=== PATIENT | male | born 1950 | race Caucasian/White ===

== ENCOUNTER 2017-11-16 04:16 | Emergency (ER) | payer OTHER ==
[~2017-11-16] VITALS: Ht 175.3 cm; Wt 65.0 kg
[2017-11-16 04:18] VITALS: BP 159/76; PULSE 97; RESP 26; TEMP 98.1; O2SAT 96
[2017-11-16] MEDS ORDERED: ALBUAER3 INH (04:23)
[2017-11-16] MEDS ORDERED: SYMB160A INH (04:23)
--- NOTE | 2017-11-16 04:53 | PD ---
HPI Chief Complaint: Respiratory Symptoms Time Seen by Provider: 04:19 Travel History International Travel<30 days: No Contact w/Intl Traveler<30days: No Traveled to known affect area: No History of Present Illness HPI Patient is a 67-year-old homeless male who has a history of COPD he apparently called the paramedics because he was getting shortness of breath which was worsening he ran out of his medication that he usually is to treat his COPD. In route he received to [employer] and Solu-Medrol IV he arrives appearing very unkempt close and smells unwashed he is pleasant awake alert and cooperative his lungs on initial of his eval have diffuse wheeze in all baugh expiratory PFSH Past Medical History Asthma: Yes Tetanus Vaccination: Unknown Influenza Vaccination: No Past Surgical History Other Surgery: Yes (hernia surgery 3 hrs) Social History Alcohol Use: Yes Tobacco Use: Yes Substance Use: No Allergies-Medications (Allergen,Severity, Reaction): Coded Allergies: No Known Allergies (Verified Allergy, Unknown, 11/16/17) Reported Meds & Prescriptions Reported Meds & Active Scripts Active Prednisone 50 Mg Tab 50 Mg PO DAILY Cipro (Ciprofloxacin HCl) 500 Mg Tab 500 Mg PO BID Atrovent HFA 12.9 GM Inh (Ipratropium [place]) 17 Mcg/Actuation Aer 2 Puff INH Q6HR PRN Reported Proair Hfa 8.5 GM Inh (Albuterol Sulfate) 90 Mcg/Act Aer 2 Puff INH Q4-6H PRN 108 mcg/actuation Symbicort Inh (Budesonide/Formoterol Fumarate) 160-4.5 Mcg/Act Aero 1 Puff INH Q12HR Review of Systems Except as stated in HPI: all other systems reviewed are Neg Respiratory: Positive: Cough, Shortness of Breath, Wheezing Physical Exam Narrative GENERAL: Patient is cooperative awake alert unkempt clothes are dirty and his body smell SKIN: Warm and dry. HEAD: Atraumatic. Normocephalic. EYES: Pupils equal and round. No scleral icterus. No injection or drainage. ENT: No nasal bleeding or discharge. Mucous membranes pink and moist. NECK: Trachea midline. No JVD. CARDIOVASCULAR: Regular rate and rhythm. RESPIRATORY: No accessory muscle use. Diffuse wheeze in all baugh upper and lower expiratory no obvious respiratory distress respiratory rate is not increased. GASTROINTESTINAL: Abdomen soft, non-tender, nondistended. Hepatic and splenic margins not palpable. MUSCULOSKELETAL: Extremities without clubbing, cyanosis, or edema. No obvious deformities. NEUROLOGICAL: Awake and alert. No obvious cranial nerve deficits. Motor grossly within normal limits. Five out of 5 muscle strength in the arms and legs. Normal speech. PSYCHIATRIC: Appropriate mood and affect; insight and judgment normal. Data Data Last Documented VS Vital Signs Date Time Temp Pulse Resp B/P (MAP) Pulse Ox O2 Delivery O2 Flow Rate FiO2 11/16/17 06:49 11/16/17 06:11 95 16 98 Room Air 11/16/17 04:18 98.1 Orders Orders Levofloxacin (Levaquin) (11/16/17 05:30) Albuterol-Ipratropium Neb (Duoneb Neb) (11/16/17 05:30) Chest, Pa & Lat (11/16/17 ) Complete Blood Count With Diff (11/16/17 05:22) Comprehensive Metabolic Panel (11/16/17 05:22) Troponin I (11/16/17 05:22) Lipase (11/16/17 05:22) Ed Discharge Order (11/16/17 06:37) Labs Laboratory Tests Test 11/16/17 05:15 White Blood Count 6.7 TH/MM3 Red Blood Count 4.47 MIL/MM3 Hemoglobin 14.0 GM/DL Hematocrit 41.5 % Mean Corpuscular Volume 92.8 FL Mean Corpuscular Hemoglobin 31.4 PG Mean Corpuscular Hemoglobin Concent 33.8 % Red Cell Distribution Width 13.8 % Platelet Count 292 TH/MM3 Mean Platelet Volume 8.1 FL Neutrophils (%) (Auto) 53.2 % Lymphocytes (%) (Auto) 34.1 % Monocytes (%) (Auto) 6.4 % Eosinophils (%) (Auto) 5.1 % Basophils (%) (Auto) 1.2 % Neutrophils # (Auto) 3.6 TH/MM3 Lymphocytes # (Auto) 2.3 TH/MM3 Monocytes # (Auto) 0.4 TH/MM3 Eosinophils # (Auto) 0.3 TH/MM3 Basophils # (Auto) 0.1 TH/MM3 Blood Urea Nitrogen 15 MG/DL Creatinine 0.54 MG/DL Random Glucose 89 MG/DL Total Protein 6.6 GM/DL Albumin 3.2 GM/DL Calcium Level 7.7 MG/DL Alkaline Phosphatase 73 U/L Aspartate Amino Transf (AST/SGOT) 31 U/L Alanine Aminotransferase (ALT/SGPT) 21 U/L Total Bilirubin 0.4 MG/DL Sodium Level 139 MEQ/L Potassium Level 4.0 MEQ/L Chloride Level 109 MEQ/L Carbon Dioxide Level 23.0 MEQ/L Anion Gap 7 MEQ/L Estimat Glomerular Filtration Rate 153 ML/MIN Troponin I LESS THAN 0.02 NG/ML Lipase 277 U/L MDM Medical Decision Making Medical Screen Exam Complete: Yes Emergency Medical Condition: Yes Differential Diagnosis copd exacerbation vs bronchitis , vs PNA vs URI other Narrative Course Chest x-ray is within normal limits he is given duo nebs Solu-Medrol was given en route given by mouth Levaquin his room sat on room air is 98% I will discharge him on Cipro Atrovent and prednisone follow-up as an outpatient discharged home Diagnosis Primary Impression: COPD exacerbation Patient Instructions: COPD (Chronic Obstructive Pulmonary Disease) (ED), General Instructions Scripts Prednisone (Prednisone) 50 Mg Tab 50 MG PO DAILY, #6 TAB 0 Refills Prov: Ad Lyn MD 11/16/17 Ciprofloxacin (Cipro) 500 Mg Tab 500 MG PO BID for Infection, #20 TAB 0 Refills Prov: Ad Lyn MD 11/16/17 Ipratropium HFA 12.9 GM Inh (Atrovent HFA 12.9 GM Inh) 17 Mcg/Actuation Aer 2 PUFF INH Q6HR Y for SHORTNESS OF BREATH, #1 INHALER 0 Refills Prov: Ad Lyn MD 11/16/17 Disposition: 01 DISCHARGE HOME Condition: Good Ad Lyn MD Nov 16, 2017 04:53
[2017-11-16] MEDS ORDERED: LEVOFLOXACIN 750 MG TAB PO ONE (05:30)
[2017-11-16] MEDS ORDERED: RESP: ALBUTEROL 2.5 MG/IPRATROPIUM 0.5 MG NEB (SCH) NEB ONE (05:30)
[2017-11-16 05:42] LABS: AUTOMATED NEUTROPHIL # 3.6 TH/MM3 (1.8-7.7); BASOPHIL # 0.1 TH/MM3 (0-0.2); BASOPHIL % 1.2 % (0.0-2.0); EOSINOPHIL # 0.3 TH/MM3 (0-0.4); EOSINOPHIL % 5.1 % (0.0-4.0); HEMATOCRIT 41.5 % (39.0-51.0); LYMPH % 34.1 % (9.0-44.0); LYMPHOCYTE # 2.3 TH/MM3 (1.0-4.8); MEAN CELL VOLUME 92.8 FL (80.0-100.0); MEAN CORPUSCULAR HEMOGLOBIN 31.4 PG (27.0-34.0); MEAN CORPUSCULAR HGB CONC 33.8 % (32.0-36.0); MEAN PLATELET VOLUME 8.1 FL (7.0-11.0); MONO % 6.4 % (0.0-8.0); MONOCYTE # 0.4 TH/MM3 (0-0.9); NEUT % 53.2 % (16.0-70.0); PLATELET COUNT 292 TH/MM3 (150-450); RED BLOOD COUNT 4.47 MIL/MM3 (4.50-5.90); RED CELL DISTRIBUTION WIDTH 13.8 % (11.6-17.2); WHITE BLOOD COUNT 6.7 TH/MM3 (4.0-11.0)
[2017-11-16 06:06] LABS: ALKALINE PHOSPHATASE 73 U/L (45-117); TOTAL BILIRUBIN ADULT 0.4 MG/DL (0.2-1.0); TOTAL PROTEIN 6.6 GM/DL (6.4-8.2); TROPONIN I LESS THAN 0.02 NG/ML (0.02-0.05)
[2017-11-16 06:08] LABS: ALBUMIN 3.2 GM/DL (3.4-5.0); ALT (GPT) 21 U/L (12-78); AST (GOT) 31 U/L (15-37); BLOOD UREA NITROGEN 15 MG/DL (7-18); CALCIUM 7.7 MG/DL (8.5-10.1); CHLORIDE 109 MEQ/L (98-107); CREATININE 0.54 MG/DL (0.60-1.30); GLOMERULAR FILTRATION RATE 153 ML/MIN (>89); GLUCOSE,RANDOM 89 MG/DL (74-106); SODIUM (NA) 139 MEQ/L (136-145)
[2017-11-16 06:11] VITALS: BP 144/74; PULSE 95; RESP 16; O2SAT 98
[2017-11-16] MEDS ORDERED: PRED50 PO (06:36)
[2017-11-16] MEDS ORDERED: CIPR-9 PO (06:36)
[2017-11-16] MEDS ORDERED: IPRA17I INH (06:36)
--- NOTE | 2017-11-16 06:36 | RADRPT ---
EXAM DATE/TIME: 11/16/2017 06:20 [facility] COMPARISON: No previous studies available for comparison. INDICATIONS : Cough. MEDICAL HISTORY : None. SURGICAL HISTORY : None. ENCOUNTER: Initial ACUITY: 1 day PAIN SCORE: 0/10 LOCATION: Bilateral chest FINDINGS: Frontal and lateral views of the chest demonstrate a normal-sized cardiac silhouette. Lungs are mildl y hyperinflated with interstitial prominence bilaterally. No pleural effusion, airspace consolidation , or pneumothorax is identified. The bones and soft tissues demonstrate no acute finding. There are d egenerative changes of the thoracic spine. CONCLUSION: No acute cardiopulmonary abnormality is identified. There are background lung changes suggesting obst ructive airways disease/emphysema. Panda Figueroa MD on November 16, 2017 at 6:32 Board Certified Radiologist. This report was verified electronically.
== END 2017-11-16 07:51 | disposition home or self-care (01) ==
LOC: NEPE 04:16
DX: J44.1 Chronic obstructive pulmonary disease with (acute) exacerbation (principal); Z72.0 Tobacco use
CPT/HCPCS: 71046; 80053; 83690; 84484; 85025; 94664; 99284

== ENCOUNTER 2017-12-01 10:14 | Emergency (ER) | payer OTHER ==
[~2017-12-01] VITALS: Ht 162.6 cm; Wt 68.2 kg
[~2017-12-01 10:14] MED LIST: ALBUAER3 INH; CIPR-9 PO; IPRA17I INH; PRED50 PO; SYMB160A INH
[2017-12-01 10:29] VITALS: BP 128/78; PULSE 71; RESP 16; O2SAT 97
[2017-12-01 10:31] VITALS: BP 128/78; PULSE 71; RESP 16; TEMP 97.5; O2SAT 97
[2017-12-01] MEDS ORDERED: methylPREDNISolone SOD SUCC 125 MG/2 ML VIAL IV PUSH ONE (11:15)
--- NOTE | 2017-12-01 11:19 | PD ---
HPI Chief Complaint: Respiratory Symptoms Time Seen by Provider: 11:02 Travel History International Travel<30 days: No Contact w/Intl Traveler<30days: No Traveled to known affect area: No History of Present Illness HPI 67 year old male presents to the emergency department for evaluation of shortness of breath. Patient was here on 11/16/17 for COPD exacerbation. He states he needs his Symbicort refilled and has been out for several months. Patient states that after being seen on November 16, he did feel better for approximately a week. However, today, he left his house without his albuterol inhaler and became worse. Patient is a current tobacco smoker, smokes 7-8 cigarettes daily. Patient denies any fevers or chills. No chest pain. No abdominal pain. No nausea, vomiting, diarrhea. Patient with history of eczema , but no other chronic medical problems. Patient states he is feeling better after receiving albuterol nebulizer via EMS. Patient has no pain. Albuterol alleviates symptoms. Exacerbating factor is not having inhaler. Moderate severity. PFSH Past Medical History Asthma: Yes Respiratory: Yes (COPD) Past Surgical History Other Surgery: Yes (hernia surgery 3 hrs) Social History Alcohol Use: Yes Tobacco Use: Yes Substance Use: No Allergies-Medications (Allergen,Severity, Reaction): Coded Allergies: No Known Allergies (Verified Allergy, Unknown, 11/16/17) Reported Meds & Prescriptions Reported Meds & Active Scripts Active Prednisone 50 Mg Tab 50 Mg PO DAILY Cipro (Ciprofloxacin HCl) 500 Mg Tab 500 Mg PO BID Atrovent HFA 12.9 GM Inh (Ipratropium [place]) 17 Mcg/Actuation Aer 2 Puff INH Q6HR PRN Reported Proair Hfa 8.5 GM Inh (Albuterol Sulfate) 90 Mcg/Act Aer 2 Puff INH Q4-6H PRN 108 mcg/actuation Symbicort Inh (Budesonide/Formoterol Fumarate) 160-4.5 Mcg/Act Aero 1 Puff INH Q12HR Review of Systems Except as stated in HPI: all other systems reviewed are Neg Physical Exam Narrative GENERAL: Unkempt male patient, afebrile. SKIN: Focused skin assessment warm/dry. HEAD: Normocephalic. Atraumatic. ENT: Mucosa pink and moist. No erythema or exudates. No uvular edema. No uvular , palatal, or tonsillar deviation. Airway patent. Nasal turbinates appear normal without nasal blood, purulent drainage or septal hematoma. Bilateral tympanic membranes are clear without erythema or perforation. EYES: No scleral icterus. No injection or drainage. NECK: Supple, trachea midline. No JVD or lymphadenopathy. CARDIOVASCULAR: Regular rate and rhythm without murmurs, gallops, or rubs. Bilateral radial and pedal pulses are 2+. RESPIRATORY: Breath sounds equal bilaterally. No accessory muscle use. Lungs sounds with expiratory wheezes noted throughout. GASTROINTESTINAL: Abdomen soft, non-tender, nondistended. MUSCULOSKELETAL: No cyanosis, or edema. BACK: Nontender without obvious deformity. No CVA tenderness. Data Data Last Documented VS Vital Signs Date Time Temp Pulse Resp B/P (MAP) Pulse Ox O2 Delivery O2 Flow Rate FiO2 12/01/17 10:31 16 97 Room Air 12/01/17 10:31 97.5 71 128/78 (95) Orders Orders Chest, Pa & Lat (12/01/17 ) Influenzae A/B Antigen (12/01/17 10:44) Iv Access Insert/Monitor (12/01/17 11:14) Methylprednisolone So Succ Inj (Solumedr (12/01/17 11:15) Albuterol-Ipratropium Neb (Duoneb Neb) (12/01/17 11:15) MDM Medical Decision Making Medical Screen Exam Complete: Yes Emergency Medical Condition: Yes Medical Record Reviewed: Yes Interpretation(s) chest x-ray - CONCLUSION: No acute cardiopulmonary disease. Differential Diagnosis COPD exacerbation versus pneumonia versus URI Narrative Course 67-year-old male presents to the emergency department for evaluation of shortness of breath, COPD exacerbation. Vital signs are stable patient appears on exam. IV access established. Patient is given DuoNeb 3, Solu-Medrol 125 mg IV. Chest x-ray and influenza swab are ordered and pending. Chest x-ray shows no acute cardiopulmonary disease. Influenza is negative. Upon reexamination, patient states he feels much better and is no longer short of breath. Mild expiratory wheezes are noted. Patient becomes agitated very easily and screams that he does not have a couple coffee. He states he feels okay to go home. Patient is requesting a prescription for Symbicort. He'll be given this as well as a short-term prescription for prednisone. The patient was discharged in stable condition with instructions, including return instructions and follow up instructions. Diagnosis Primary Impression: COPD exacerbation Referrals: [facility] Primary Care Physician Patient Instructions: COPD (Chronic Obstructive Pulmonary Disease) (ED), General Instructions Additional Instructions: Use Symbicort as directed. You requested this refill. Take prednisone taper as directed until gone. Use your albuterol inhaler as needed for shortness of breath/wheezing. Stop smoking. Follow-up with your primary care physician. Return to the emergency department for any acute worsening of symptoms. Med/Other Pt SpecificInfo: Prescription(s) given Scripts Prednisone (Prednisone) 10 Mg Tab 10 MG PO DIRECTED for 10 Days, TAB 0 Refills Take 50 mg (5 tabs) daily for 2 days Take 40 mg (4 tabs) daily for 2 days Take 30 mg (3 tabs) daily for 2 days Take 20 mg (2 tabs) daily for 2 days Take 10 mg (1 tab) daily for 2 days, then stop Prov: Yu España 12/01/17 Budesonide-Formoterol Inh (Symbicort Inh) 160-4.5 Mcg/Act Aero 1 PUFF INH Q12HR, #1 INHALER 0 Refills Prov: Yu España 12/01/17 Disposition: 01 DISCHARGE HOME Condition: Stable Yu España Dec 01, 2017 11:19
[2017-12-01] MEDS: RESP: ALBUTEROL 2.5 MG/IPRATROPIUM 0.5 MG NEB (SCH) INH (11:43)
--- NOTE | 2017-12-01 11:49 | RADRPT ---
EXAM DATE/TIME: 12/01/2017 11:23 [facility] COMPARISON: CHEST PA & LAT, November 16, 2017, 6:20. INDICATIONS : Short of breath. MEDICAL HISTORY : Chronic obstructive pulmonary disease. Emphysema. hx given by pt SURGICAL HISTORY : None. ENCOUNTER: Initial ACUITY: 1 day PAIN SCORE: 0/10 LOCATION: Bilateral chest FINDINGS: PA and lateral views of the chest demonstrate the lungs to be symmetrically hyperaerated without evid ence of mass, infiltrate or effusion. The cardiomediastinal contours are unremarkable. Osseous stru ctures are intact. CONCLUSION: No acute cardiopulmonary disease. Pawan Kebede MD on December 01, 2017 at 11:47 Board Certified Radiologist. This report was verified electronically.
[2017-12-01] MEDS ORDERED: PRED10 PO (12:08)
[2017-12-01] MEDS ORDERED: SYMB160A INH (12:08)
== END 2017-12-01 12:22 | disposition home or self-care (01) ==
LOC: NEPC 10:14
DX: J44.1 Chronic obstructive pulmonary disease with (acute) exacerbation (principal); J45.909 Unspecified asthma, uncomplicated; F17.210 Nicotine dependence, cigarettes, uncomplicated; Z79.899 Other long term (current) drug therapy
CPT/HCPCS: 71046; 87804; 94664; 96374; 99284; J2930

== ENCOUNTER 2017-12-17 23:35 | Emergency (ER) | payer OTHER ==
[~2017-12-17] VITALS: Ht 175.3 cm; Wt 64.0 kg
[~2017-12-17 23:35] MED LIST changes: +PRED10 PO
[2017-12-17 23:57] VITALS: BP 138/69; PULSE 90; RESP 16; TEMP 98.4; O2SAT 97
--- NOTE | 2017-12-18 01:59 | PD ---
HPI Chief Complaint: Injury Time Seen by Provider: 01:53 Travel History International Travel<30 days: No Contact w/Intl Traveler<30days: No Traveled to known affect area: No History of Present Illness HPI 67-year-old male presents for evaluation of left foot pain. He reports that this evening he twisted his left foot and has had pain to the left proximal foot since then. Pain is an aching pain which is worse when ambulating. Denies any other injuries and he has no other complaints at this time. [facility] Past Medical History Asthma: Yes Respiratory: Yes (COPD) Past Surgical History Other Surgery: Yes (hernia surgery 3 hrs) Social History Alcohol Use: Yes Tobacco Use: Yes Substance Use: No Allergies-Medications (Allergen,Severity, Reaction): Coded Allergies: No Known Allergies (Verified Allergy, Unknown, 12/17/17) Reported Meds & Prescriptions Reported Meds & Active Scripts Active Prednisone 10 Mg Tab 10 Mg PO DIRECTED 10 Days Take 50 mg (5 tabs) daily for 2 days Take 40 mg (4 tabs) daily for 2 days Take 30 mg (3 tabs) daily for 2 days Take 20 mg (2 tabs) daily for 2 days Take 10 mg (1 tab) daily for 2 days, then stop Symbicort Inh (Budesonide/Formoterol Fumarate) 160-4.5 Mcg/Act Aero 1 Puff INH Q12HR Prednisone 50 Mg Tab 50 Mg PO DAILY Cipro (Ciprofloxacin HCl) 500 Mg Tab 500 Mg PO BID Atrovent HFA 12.9 GM Inh (Ipratropium [place]) 17 Mcg/Actuation Aer 2 Puff INH Q6HR PRN Reported Proair Hfa 8.5 GM Inh (Albuterol Sulfate) 90 Mcg/Act Aer 2 Puff INH Q4-6H PRN 108 mcg/actuation Review of Systems Musculoskeletal: Positive: Pain, No: Limited ROM Neurologic: No: Paresthesia Physical Exam Narrative GENERAL: Well-nourished male in no acute distress SKIN: Warm and dry. HEAD: Atraumatic. Normocephalic. EYES: Pupils equal and round. No scleral icterus. No injection or drainage. ENT: No nasal bleeding or discharge. Mucous membranes pink and moist. NECK: Trachea midline. No JVD. CARDIOVASCULAR: Regular rate and rhythm. No murmur appreciated. RESPIRATORY: No accessory muscle use. Clear to auscultation. Breath sounds equal bilaterally. GASTROINTESTINAL: Abdomen soft, non-tender, nondistended. Hepatic and splenic margins not palpable. MUSCULOSKELETAL: No obvious deformities. Tender to palpation proximal left foot overlying the first metatarsal. No bruising or soft tissue swelling. The patient maintains full range of motion. Distal sensation and pulses preserved. NEUROLOGICAL: Awake and alert. No obvious cranial nerve deficits. Motor grossly within normal limits. Normal speech. Data Data Last Documented VS Vital Signs Date Time Temp Pulse Resp B/P (MAP) Pulse Ox O2 Delivery O2 Flow Rate FiO2 12/17/17 23:57 98.4 90 16 138/69 (92) 97 Orders Orders Foot, Complete ([id number]) (12/18/17 ) Ed Discharge Order (12/18/17 02:48) [facility] Medical Decision Making Medical Screen Exam Complete: Yes Emergency Medical Condition: Yes Medical Record Reviewed: Yes Differential Diagnosis Foot sprain, strain, fracture Narrative Course X-ray imaging of the foot was obtained revealing no acute abnormalities. The patient stable for discharge. He is ambulatory. Diagnosis Primary Impression: Strain of left foot Additional Instructions: Tylenol Motrin for pain, rest, ice the area several times a day 15 minutes at a time, return for any emergent medical conditions. Med/Other Pt SpecificInfo: No Change to Meds Disposition: 01 DISCHARGE HOME Condition: Stable [address] Dec 18, 2017 01:59
[2017-12-18 02:30] VITALS: BP 131/71; PULSE 82; RESP 18; O2SAT 99
--- NOTE | 2017-12-18 02:31 | RADRPT ---
EXAM DATE/TIME: 12/18/2017 02:09 [facility] COMPARISON: No previous studies available for comparison. INDICATIONS : Left foot pain. MEDICAL HISTORY : None. SURGICAL HISTORY : Screws in ankle. ENCOUNTER: Initial ACUITY: 1 day PAIN SCORE: 0/10 LOCATION: Left foot FINDINGS: Three view examination of the left foot demonstrates no soft tissue swelling, dislocation, or fractur e. The tarsal bones appear intact. The interphalangeal and metatarsophalangeal joints are intact. The calcaneus is intact. Bony mineralization is normal. Orthopedic hardware seen involving the dist al tibia. CONCLUSION: No acute abnormality. Pawan To Jr., MD on December 18, 2017 at 2:28 Board Certified Radiologist. This report was verified electronically.
== END 2017-12-18 03:11 | disposition home or self-care (01) ==
LOC: NEPD 23:35
DX: S96.912A Strain of unspecified muscle and tendon at ankle and foot level, left foot, initial encounter (principal); X50.1XXA Overexertion from prolonged static or awkward postures, initial encounter
CPT/HCPCS: 73630; 99283

== ENCOUNTER 2018-01-09 21:32 | Emergency (ER) | payer MEDICARE, OTHER ==
[~2018-01-09] VITALS: Ht 172.7 cm; Wt 65.0 kg
[2018-01-09 22:31] VITALS: BP 149/74; PULSE 88; RESP 16; TEMP 98.5; O2SAT 99
== END 2018-01-09 22:48 | disposition left against medical advice (07) ==
LOC: NEDAMB 21:32
DX: Z53.21 Procedure and treatment not carried out due to patient leaving prior to being seen by health care provider (principal)
CPT/HCPCS: 99281

== ENCOUNTER 2018-01-23 06:44 | Emergency (ER) | payer OTHER, MEDICAID ==
[2018-01-23 07:11] VITALS: BP 182/79; PULSE 74; RESP 18; TEMP 98; O2SAT 98
[2018-01-23] MEDS ORDERED: IBUP200T47 PO (07:41)
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
[2018-01-23] MEDS ORDERED: IBUPROFEN 600 MG TAB PO ONE (07:45)
[2018-01-24] MEDS ORDERED: ALBUAER3 INH (05:39)
[2018-01-24] MEDS ORDERED: SYMB160A INH (05:39)
[2018-01-24] MEDS ORDERED: MEDR4PAK PO (06:54)
[2018-01-24] MEDS ORDERED: LEVA750T9 PO (06:54)
== END 2018-01-23 08:30 | disposition home or self-care (01) ==
LOC: NEPE 06:44
DX: R07.81 Pleurodynia (principal); J44.9 Chronic obstructive pulmonary disease, unspecified; Z72.0 Tobacco use
CPT/HCPCS: 99282

== ENCOUNTER 2018-01-24 05:00 | Emergency (ER) | payer OTHER, MEDICAID ==
[~2018-01-24] VITALS: Ht 175.3 cm; Wt 65.0 kg
[~2018-01-24 05:00] MED LIST changes: +IBUP200T47 PO
[2018-01-24 05:02] VITALS: BP 166/96; PULSE 82; RESP 18; TEMP 97.8; O2SAT 97
--- NOTE | 2018-01-24 05:14 | PD ---
HPI Chief Complaint: Respiratory Distress Time Seen by Provider: 05:09 Travel History International Travel<30 days: No Contact w/Intl Traveler<30days: No Traveled to known affect area: No History of Present Illness HPI The patient is a 67 year old male who presents to the [facility] emergency department with a history of shortness of breath that worsened prior to arrival. The patient reports that he went to his primary care physician at the [facility] 2 days ago and was told that his Symbicort and pro-air inhaler [facility] He reports that he went to the [facility] and the prescriptions were not available. He reports that he ran out of the Symbicort, 4 days ago and today he took his last puff of his rescue inhaler. The patient reports that he developed recurrent shortness of breath and then called ambulance services. The patient denies having any increased productivity to his cough. He reports that he does have an occasional smoker's cough. He reports that approximately a month ago he did break to ribs, however he reports that this has been healing well and the pain is improved. He reports having chest tightness with trying to take a deep breath, however no other chest pain. He denies having any known recent fevers. On review of systems otherwise, he denies having any neck pain, abdominal pain, vomiting, diarrhea, urinary symptoms, or neurologic symptoms. [facility] Past Medical History Narrative Medical The patient's past medical history is significant for asthma in childhood, COPD , tobacco abuse Asthma: Yes COPD: Yes Diminished Hearing: No Respiratory: Yes (COPD) Tetanus Vaccination: Unknown Influenza Vaccination: No Past Surgical History Narrative Surgical The patient's past surgical history is significant for hernia repair. Abdominal Surgery: Yes (HERNIA REPAIR) Other Surgery: Yes (hernia surgery 3 hrs) Social History Alcohol Use: Yes (8 beers occasionally) Tobacco Use: Yes (8 cigs per day.) Substance Use: No Allergies-Medications (Allergen,Severity, Reaction): Coded Allergies: No Known Allergies (Verified Allergy, Unknown, 01/24/18) Reported Meds & Prescriptions Reported Meds & Active Scripts Active Medrol Dosepak (Methylprednisolone) 4 Mg Dspk 4 Mg PO DIRECTED Per Pharmacist direction Levaquin (Levofloxacin) 750 Mg Tablet 750 Mg PO DAILY Proair Hfa 8.5 GM Inh (Albuterol Sulfate) 90 Mcg/Act Aer 2 Puff INH Q4-6H PRN 108 mcg/actuation Symbicort Inh (Budesonide/Formoterol Fumarate) 160-4.5 Mcg/Act Aero 1 Puff INH Q12HR Review of Systems Except as stated in HPI: all other systems reviewed are Neg General / Constitutional: No: Fever Eyes: No: Visual changes HENT: No: Headaches, Congestion Cardiovascular: Positive: Dyspnea on exertion, No: Chest Pain or Discomfort Respiratory: Positive: Cough, Shortness of Breath, Wheezing Gastrointestinal: No: Abdominal Pain Genitourinary: No: Dysuria Musculoskeletal: No: Pain Skin: No Rash Neurologic: No: Weakness Psychiatric: No: Depression Endocrine: No: Polydipsia Hematologic/Lymphatic: No: Easy Bruising Physical Exam Narrative General: The patient is a well-developed well-nourished male in no acute distress, a DuoNeb is in the process of being provided when he arrives to this facility. Head and Neck exam: Head is normocephalic atraumatic. Eyes: EOMI, pupils are equal round and reactive to light. Nose: Midline septum with pink mucous membranes Mouth: Dentition unremarkable. Moist mucus membranes. Posterior oropharynx is not erythematous. No tonsillar hypertrophy. Uvula midline. Airway patent. Neck: No palpable lymphadenopathy. No nuchal rigidity. No thyromegaly. Cardiovascular: Regular rate and rhythm without murmurs, gallops, or rubs. No pulse deficit to the extremities on simultaneous auscultation and palpation of his radial artery. Lungs: Soft expiratory wheezes are audible in bilateral lung baugh, no rhonchi, no crackles. No accessory muscle use is noted at this time. No paroxysmal abdominal breathing or tripoding. Abdomen: Soft, without tenderness to palpation in all 4 quadrants of the abdomen. No guarding, rebound, or rigidity. Normal bowel sounds are audible. No tenderness on palpation of McBurney's point. Extremities: No clubbing, cyanosis, or edema. 2+ pulses in all 4 extremities. No calf tenderness on palpation. Back: No spinous process tenderness to palpation. No costovertebral angle tenderness to palpation. Neurologic Exam: Grossly nonfocal. Skin Exam: No rash noted. Intact skin that is warm and dry. Data Data Last Documented VS Vital Signs Date Time Temp Pulse Resp B/P (MAP) Pulse Ox O2 Delivery O2 Flow Rate FiO2 01/24/18 07:12 01/24/18 06:00 65 18 98 Room Air 01/24/18 05:35 21 01/24/18 05:02 97.8 Orders Orders Electrocardiogram (01/24/18 05:21) Complete Blood Count With Diff (01/24/18 05:21) Basic Metabolic Panel (Bmp) (01/24/18 05:21) Creatine Kinase (Cpk) (01/24/18 05:21) Ckmb (Isoenzyme) Profile (01/24/18 05:21) Troponin I (01/24/18 05:21) Chest, Single Ap (01/24/18 05:21) Iv Access Insert/Monitor (01/24/18 05:21) Ecg Monitoring (01/24/18 05:21) Oximetry (01/24/18 05:21) Methylprednisolone So Succ Inj (Solumedr (01/24/18 05:30) Albuterol-Ipratropium Neb (Duoneb Neb) (01/24/18 05:30) CKMB (01/24/18 05:20) CKMB% (01/24/18 05:20) Levofloxacin (Levaquin) (01/24/18 07:00) Ed Discharge Order (01/24/18 06:54) Labs Laboratory Tests Test 01/24/18 05:20 White Blood Count 8.9 TH/MM3 Red Blood Count 4.41 MIL/MM3 Hemoglobin 14.0 GM/DL Hematocrit 41.0 % Mean Corpuscular Volume 93.0 FL Mean Corpuscular Hemoglobin 31.9 PG Mean Corpuscular Hemoglobin Concent 34.3 % Red Cell Distribution Width 14.7 % Platelet Count 378 TH/MM3 Mean Platelet Volume 7.8 FL Neutrophils (%) (Auto) 72.8 % Lymphocytes (%) (Auto) 16.8 % Monocytes (%) (Auto) 7.0 % Eosinophils (%) (Auto) 2.3 % Basophils (%) (Auto) 1.1 % Neutrophils # (Auto) 6.5 TH/MM3 Lymphocytes # (Auto) 1.5 TH/MM3 Monocytes # (Auto) 0.6 TH/MM3 Eosinophils # (Auto) 0.2 TH/MM3 Basophils # (Auto) 0.1 TH/MM3 CBC Comment DIFF FINAL Differential Comment Blood Urea Nitrogen 14 MG/DL Creatinine 0.50 MG/DL Random Glucose 76 MG/DL Calcium Level 8.9 MG/DL Sodium Level 141 MEQ/L Potassium Level 3.8 MEQ/L Chloride Level 104 MEQ/L Carbon Dioxide Level 28.7 MEQ/L Anion Gap 8 MEQ/L Estimat Glomerular Filtration Rate 167 ML/MIN Total Creatine Kinase 153 U/L Creatine Kinase MB 7.8 NG/ML Troponin I LESS THAN 0.02 NG/ML MDM Medical Decision Making Medical Screen Exam Complete: Yes Emergency Medical Condition: Yes Medical Record Reviewed: Yes Interpretation(s) Last Impressions Chest X-Ray 01/24/18 05 Signed Impressions: Service Date/Time: Wednesday, January 24, 2018 05:44 - CONCLUSION: Mildly displaced fractures of the left seventh and eighth ribs. Mild left midlung consolidation. Panda Rand MD Differential Diagnosis COPD exacerbation, versus pneumonia, versus pneumothorax Narrative Course During the course of the patient's emergency department visit, the patient's history, examination, and differential diagnosis were reviewed with the patient. The patient was placed on a cardiac specialist with oximetry and frequent blood pressure monitoring. The patient had IV access obtained and blood work sent for analysis. The patient was initially provided Solu-Medrol 125 mg IV and a DuoNeb 1 The patient's studies were reviewed and showed a CBC and basic metabolic profile that are unremarkable, cardiac enzymes are within normal limits. A chest xray shows a left 7th and 8th rib fx which the patient was aware of from prior trauma a month ago. It also shows a mild infiltrate on the left. The patient was started on Levaquin PO and given a course a prescription for antibiotic to complete the course. The patient is resting comfortably and feels better, is alert and in no distress. The patient's results and examination findings were discussed with the patient. The repeat examination is unremarkable and benign. The history, exam, diagnostic testing, and current condition do not suggest any significant pathology to warrant further testing, continued ED treatment, admission, or surgical evaluation at this point. The vital signs have been stable. The patient does not have uncontrollable pain, intractable vomiting, or other significant symptoms. The patient's condition is stable and appropriate for discharge. The patient will pursue further outpatient evaluation with a primary care physician or other designated or consulting physician as indicated in the discharge instructions. The patient expressed understanding and was agreeable with this plan. Diagnosis Primary Impression: COPD exacerbation Additional Impression: Pneumonia Qualified Codes: J18.9 - Pneumonia, unspecified organism Referrals: [facility] 2 days Patient Instructions: Bacterial Pneumonia (ED), COPD (Chronic Obstructive Pulmonary Disease) (ED), General Instructions Med/Other Pt SpecificInfo: Prescription(s) given Scripts Methylprednisolone Dosepak (Medrol Dosepak) 4 Mg Dspk 4 MG PO DIRECTED, #1 DSPK 0 Refills Per Pharmacist direction Prov: Yesika Whitten MD 01/24/18 Levofloxacin (Levaquin) 750 Mg Tablet 750 MG PO DAILY for Infection, #6 TAB 0 Refills Prov: Yesika Whitten MD 01/24/18 Albuterol 8.5 GM Inh (Proair Hfa 8.5 GM Inh) 90 Mcg/Act Aer 2 PUFF INH Q4-6H Y for SHORTNESS OF BREATH, #1 INHALER 0 Refills 108 mcg/actuation Prov: Yesika Whitten MD 01/24/18 Budesonide-Formoterol Inh (Symbicort Inh) 160-4.5 Mcg/Act Aero 1 PUFF INH Q12HR, #1 INHALER 0 Refills Prov: Yesika Whitten MD 01/24/18 Disposition: 01 DISCHARGE HOME Condition: Stable Yesika Whitten MD Jan 24, 2018 05:14
[2018-01-24] MEDS ORDERED: methylPREDNISolone SOD SUCC 125 MG/2 ML VIAL IV PUSH ONE (05:30)
[2018-01-24] MEDS ORDERED: RESP: ALBUTEROL 2.5 MG/IPRATROPIUM 0.5 MG NEB (SCH) NEB ONE (05:30)
[2018-01-24 05:35] VITALS: O2SAT 97
[2018-01-24] MEDS ORDERED: ALBUAER3 INH (05:39)
[2018-01-24] MEDS ORDERED: SYMB160A INH (05:39)
[2018-01-24 05:42] VITALS: O2SAT 96
[2018-01-24 05:57] LABS: AUTOMATED NEUTROPHIL # 6.5 TH/MM3 (1.8-7.7); BASOPHIL # 0.1 TH/MM3 (0-0.2); BASOPHIL % 1.1 % (0.0-2.0); EOSINOPHIL # 0.2 TH/MM3 (0-0.4); EOSINOPHIL % 2.3 % (0.0-4.0); LYMPH % 16.8 % (9.0-44.0); LYMPHOCYTE # 1.5 TH/MM3 (1.0-4.8); MEAN CORPUSCULAR HEMOGLOBIN 31.9 PG (27.0-34.0); MEAN CORPUSCULAR HGB CONC 34.3 % (32.0-36.0); MEAN PLATELET VOLUME 7.8 FL (7.0-11.0); MONOCYTE # 0.6 TH/MM3 (0-0.9); NEUT % 72.8 % (16.0-70.0); PLATELET COUNT 378 TH/MM3 (150-450); RED BLOOD COUNT 4.41 MIL/MM3 (4.50-5.90); RED CELL DISTRIBUTION WIDTH 14.7 % (11.6-17.2); WHITE BLOOD COUNT 8.9 TH/MM3 (4.0-11.0)
[2018-01-24 06:00] VITALS: BP 144/89; PULSE 65; RESP 18; O2SAT 98
--- NOTE | 2018-01-24 06:00 | RADRPT ---
EXAM DATE/TIME: 01/24/2018 05:44 [facility] COMPARISON: CHEST PA & LAT, December 01, 2017, 11:23. INDICATIONS : Short of breath. MEDICAL HISTORY : Chronic obstructive pulmonary disease. SURGICAL HISTORY : None. ENCOUNTER: Initial ACUITY: 2 days PAIN SCORE: 0/10 LOCATION: Bilateral chest FINDINGS: Mildly displaced fractures are seen posterolaterally of the left seventh and eighth ribs. There is mi ld infiltrate and/or contusion in the adjacent left mid lung. No pneumothorax seen. Heart size stable, within normal limits. CONCLUSION: Mildly displaced fractures of the left seventh and eighth ribs. Mild left midlung consolidation. Panda Rand MD on January 24, 2018 at 5:57 Board Certified Radiologist. This report was verified electronically.
[2018-01-24 06:20] LABS: BICARBONATE 28.7 MEQ/L (21.0-32.0); BLOOD UREA NITROGEN 14 MG/DL (7-18); CALCIUM 8.9 MG/DL (8.5-10.1); CHLORIDE 104 MEQ/L (98-107); GLOMERULAR FILTRATION RATE 167 ML/MIN (>89); GLUCOSE,RANDOM 76 MG/DL (74-106); SODIUM (NA) 141 MEQ/L (136-145)
[2018-01-24 06:27] LABS: TROPONIN I LESS THAN 0.02 NG/ML (0.02-0.05)
[2018-01-24] MEDS ORDERED: MEDR4PAK PO (06:54)
[2018-01-24] MEDS ORDERED: LEVA750T9 PO (06:54)
[2018-01-24] MEDS ORDERED: LEVOFLOXACIN 750 MG TAB PO ONE (07:00)
--- NOTE | 2018-01-24 12:12 | EKG ---
Date Performed: 01/24/2018 Time Performed: 05:03:17 PTAGE: 67 years EKG: Sinus rhythm NORMAL ECG NO PREVIOUS TRACING DOCTOR: Evan Nation Interpretating Date/Time 01/24/2018 12:10:50
== END 2018-01-24 07:36 | disposition home or self-care (01) ==
LOC: NEPE 05:00
DX: J44.1 Chronic obstructive pulmonary disease with (acute) exacerbation (principal); J44.0 Chronic obstructive pulmonary disease with (acute) lower respiratory infection; J18.9 Pneumonia, unspecified organism; F17.210 Nicotine dependence, cigarettes, uncomplicated
CPT/HCPCS: 71045; 80048; 82550; 82552; 84484; 85025; 93005; 94664; 96374; 99285; J2930

== ENCOUNTER 2018-01-31 18:10 | Emergency (ER) | payer OTHER, MEDICAID ==
[~2018-01-31 18:10] MED LIST changes: -CIPR-9 PO; -IBUP200T47 PO; -IPRA17I INH; +LEVA750T9 PO; +MEDR4PAK PO; -PRED10 PO; -PRED50 PO
[2018-01-31 18:46] VITALS: BP 151/69; PULSE 84; RESP 16; TEMP 99; O2SAT 96
--- NOTE | 2018-01-31 21:05 | PD ---
HPI . SOB Chief Complaint: Respiratory Symptoms Time Seen by Provider: 21:02 Travel History International Travel<30 days: No Contact w/Intl Traveler<30days: No Traveled to known affect area: No History of Present Illness HPI Patient is a 67-year-old male who appears to be homeless he says he has his rescue inhaler in his pocket but it is not helping alleviate his symptoms of shortness of breath. He has a history of COPD. He denies any other history and I asked him if he is just here for inhaler he says no I am here to make sure I can make it through the night. Mildly unkempt feet are black from possibly walking without shoes and satting 98% on room air no signs of respiratory distress he is not coughing he is not febrile. He reports no UR I. He reports chest tightness and wheezing worsening over the last few days in the exam room he has no signs or symptoms of being in any respiratory distress PFSH Past Medical History Asthma: Yes COPD: Yes Diminished Hearing: No Respiratory: Yes (COPD) Past Surgical History Abdominal Surgery: Yes (HERNIA REPAIR) Other Surgery: Yes (hernia surgery 3 hrs) Social History Alcohol Use: Yes (8 beers occasionally) Tobacco Use: Yes (8 cigs per day.) Substance Use: No Allergies-Medications (Allergen,Severity, Reaction): Coded Allergies: No Known Allergies (Verified Allergy, Unknown, 01/24/18) Reported Meds & Prescriptions Reported Meds & Active Scripts Active Proair Hfa 8.5 GM Inh (Albuterol Sulfate) 90 Mcg/Act Aer 2 Puff INH Q4-6H PRN 108 mcg/actuation Symbicort Inh (Budesonide/Formoterol Fumarate) 160-4.5 Mcg/Act Aero 1 Puff INH Q12HR Medrol Dosepak (Methylprednisolone) 4 Mg Dspk 4 Mg PO DIRECTED Per Pharmacist direction Levaquin (Levofloxacin) 750 Mg Tablet 750 Mg PO DAILY Proair Hfa 8.5 GM Inh (Albuterol Sulfate) 90 Mcg/Act Aer 2 Puff INH Q4-6H PRN 108 mcg/actuation Review of Systems Except as stated in HPI: all other systems reviewed are Neg Respiratory: Positive: Shortness of Breath Physical Exam Narrative GENERAL: clean but disheveled feet bare and blackened with street soot SKIN: Warm and dry. HEAD: Atraumatic. Normocephalic. EYES: Pupils equal and round. No scleral icterus. No injection or drainage. ENT: No nasal bleeding or discharge. Mucous membranes pink and moist. NECK: Trachea midline. No JVD. CARDIOVASCULAR: Regular rate and rhythm. RESPIRATORY: Diffuse wheeze in all baugh expiratory bilaterally. GASTROINTESTINAL: Abdomen soft, non-tender, nondistended. Hepatic and splenic margins not palpable. MUSCULOSKELETAL: Extremities without clubbing, cyanosis, or edema. No obvious deformities. NEUROLOGICAL: Awake and alert. No obvious cranial nerve deficits. Motor grossly within normal limits. Five out of 5 muscle strength in the arms and legs. Normal speech. PSYCHIATRIC: Appropriate mood and affect; insight and judgment normal. Data Data Last Documented VS Vital Signs Date Time Temp Pulse Resp B/P (MAP) Pulse Ox O2 Delivery O2 Flow Rate FiO2 02/01/18 05:01 02/01/18 02:40 70 16 96 Room Air 01/31/18 21:19 21 01/31/18 18:46 99.0 Orders Orders Albuterol-Ipratropium Neb (Duoneb Neb) (01/31/18 21:15) Prednisone (Deltasone) (02/01/18 09:00) Prednisone (Deltasone) (01/31/18 22:15) Albuterol-Ipratropium Neb (Duoneb Neb) (02/01/18 00:15) Chest, Pa & Lat (02/01/18 ) Ed Discharge Order (02/01/18 04:39) [facility] Medical Decision Making Medical Screen Exam Complete: Yes Emergency Medical Condition: Yes Differential Diagnosis COPD exacerbation vs COPD due to URI , vs brionchitis vs PNA Narrative Course duo nebs x 2 and Prednisone PO feels better and o2 sat 99 on RA safe for discharge with RX for symibocort and Pro -Air Diagnosis Primary Impression: COPD (chronic obstructive pulmonary disease) Patient Instructions: COPD (Chronic Obstructive Pulmonary Disease) (ED), General Instructions Scripts Albuterol 8.5 GM Inh (Proair Hfa 8.5 GM Inh) 90 Mcg/Act Aer 2 PUFF INH Q4-6H Y for SHORTNESS OF BREATH, #1 INHALER 0 Refills 108 mcg/actuation Prov: Ad Lyn MD 02/01/18 Budesonide-Formoterol Inh (Symbicort Inh) 160-4.5 Mcg/Act Aero 1 PUFF INH Q12HR, #1 INHALER 0 Refills Prov: Ad Lyn MD 02/01/18 Disposition: 01 DISCHARGE HOME Ad Lyn MD Jan 31, 2018 21:05
[2018-01-31] MEDS ORDERED: RESP: ALBUTEROL 2.5 MG/IPRATROPIUM 0.5 MG NEB (SCH) NEB ONE (21:15)
[2018-01-31 21:19] VITALS: O2SAT 97
[2018-01-31] MEDS ORDERED: predniSONE 20 MG TAB PO ONE (22:15)
[2018-01-31 22:28] VITALS: BP 160/72; PULSE 78; RESP 16; O2SAT 95
[2018-02-01] MEDS ORDERED: RESP: ALBUTEROL 2.5 MG/IPRATROPIUM 0.5 MG NEB (SCH) NEB ONE (00:15)
--- NOTE | 2018-02-01 00:38 | RADRPT ---
EXAM DATE/TIME: 02/01/2018 00:27 [facility] COMPARISON: CHEST PA & LAT, December 01, 2017, 11:23. INDICATIONS : Cough. Short of breath. MEDICAL HISTORY : Chronic obstructive pulmonary disease. SURGICAL HISTORY : Hernia repair. ENCOUNTER: Initial ACUITY: 2 days PAIN SCORE: 0/10 LOCATION: Bilateral chest FINDINGS: PA and lateral views of the chest demonstrate the lungs to be symmetrically aerated without evidence of mass, infiltrate or effusion. The cardiomediastinal contours are unremarkable. Left sixth and sev enth rib fractures. CONCLUSION: 1. Left sixth and seventh rib fractures. 2. No pneumothorax. Kyle Negron MD on February 01, 2018 at 0:35 Board Certified Radiologist. This report was verified electronically.
[2018-02-01 02:40] VITALS: BP 130/67; PULSE 70; RESP 16; O2SAT 96
[2018-02-01] MEDS ORDERED: SYMB160A INH (04:29)
[2018-02-01] MEDS ORDERED: ALBUAER3 INH (04:40)
[2018-02-01] MEDS ORDERED: predniSONE 20 MG TAB PO SCH (09:00)
== END 2018-02-01 05:01 | disposition home or self-care (01) ==
LOC: NEPC 18:10
DX: J44.9 Chronic obstructive pulmonary disease, unspecified (principal); Z72.0 Tobacco use
CPT/HCPCS: 71046; 94640; 94664; 99283; J7512

== ENCOUNTER 2018-02-03 05:19 | Emergency (ER) | payer OTHER, MEDICAID ==
[~2018-02-03] VITALS: Ht 175.3 cm; Wt 62.0 kg
[2018-02-03 05:23] VITALS: BP 158/80; PULSE 89; RESP 24; O2SAT 98
--- NOTE | 2018-02-03 05:50 | PD ---
HPI Chief Complaint: Respiratory Symptoms Time Seen by Provider: 05:34 Travel History International Travel<30 days: No Contact w/Intl Traveler<30days: No Traveled to known affect area: No History of Present Illness HPI Patient is a 67-year-old male who has a history of COPD chronic bronchitis is run out of his Symbicort as well as his Pro Air. He is having financial issues getting his medications refilled. He was here 2 nights ago with similar complaint and was given 3 DuoNeb's and steroids prednisone and discharged with new prescription for ProAir and Symbicort which she still has not filled the returns tonight with the same complaints shortness of breath wheezing and he ran out of the little bit of albuterol HFA that he had still in the ER he is no respiratory distress he is given a DuoNeb and reevaluate. Patient's current complaint is shortness of breath progressive.. Acute on chronic exacerbation tonight denies upper respiratory-like virus no fever no excessive coughing just his chronic bronchitis he also ran out of hIS pro-air HFA. He has not been able to fill the prescription I gave him 2 days ago due to financial constraints [facility] Past Medical History Asthma: Yes COPD: Yes Diminished Hearing: No Respiratory: Yes Past Surgical History Abdominal Surgery: Yes (HERNIA REPAIR) Other Surgery: Yes (hernia surgery 3 hrs) Social History Alcohol Use: Yes (8 beers occasionally) Tobacco Use: Yes (8 cigs per day.) Substance Use: No Allergies-Medications (Allergen,Severity, Reaction): Coded Allergies: No Known Allergies (Verified Allergy, Unknown, 01/24/18) Reported Meds & Prescriptions Reported Meds & Active Scripts Active Proair Hfa 8.5 GM Inh (Albuterol Sulfate) 90 Mcg/Act Aer 2 Puff INH Q4-6H PRN 108 mcg/actuation Symbicort Inh (Budesonide/Formoterol Fumarate) 160-4.5 Mcg/Act Aero 1 Puff INH Q12HR Medrol Dosepak (Methylprednisolone) 4 Mg Dspk 4 Mg PO DIRECTED Per Pharmacist direction Levaquin (Levofloxacin) 750 Mg Tablet 750 Mg PO DAILY Proair Hfa 8.5 GM Inh (Albuterol Sulfate) 90 Mcg/Act Aer 2 Puff INH Q4-6H PRN 108 mcg/actuation Review of Systems Except as stated in HPI: all other systems reviewed are Neg Respiratory: Positive: Cough, Shortness of Breath, Wheezing Physical Exam Narrative GENERAL: No respiratory distress SKIN: Warm and dry. HEAD: Atraumatic. Normocephalic. EYES: Pupils equal and round. No scleral icterus. No injection or drainage. ENT: No nasal bleeding or discharge. Mucous membranes pink and moist. NECK: Trachea midline. No JVD. CARDIOVASCULAR: Regular rate and rhythm. RESPIRATORY: Diffuse wheezing in all baugh, coarse breath sounds equal bilaterally. GASTROINTESTINAL: Abdomen soft, non-tender, nondistended. Hepatic and splenic margins not palpable. MUSCULOSKELETAL: Extremities without clubbing, cyanosis, or edema. No obvious deformities. NEUROLOGICAL: Awake and alert. No obvious cranial nerve deficits. Motor grossly within normal limits. Five out of 5 muscle strength in the arms and legs. Normal speech. PSYCHIATRIC: Appropriate mood and affect; insight and judgment normal. Data Data Last Documented VS Orders Orders Albuterol-Ipratropium Neb (Duoneb Neb) (02/03/18 06:00) Prednisone (Deltasone) (02/03/18 06:15) Albuterol-Ipratropium Neb (Duoneb Neb) (02/03/18 06:30) Albuterol Hfa Inh (Proair Hfa Inh) (02/03/18 06:45) Ed Discharge Order (02/03/18 06:47) [facility] Medical Decision Making Medical Screen Exam Complete: Yes Emergency Medical Condition: Yes Medical Record Reviewed: Yes Differential Diagnosis Shortness of breath wheezing COPD exacerbation and upper respiratory infection other Narrative Course Patient is given 2 DuoNeb with much improvement he apparently has no money to fill his prescription, so I give him another dose of [id number] mg po in ER, I saw him 2 days ago gave him scripts which were unfilled due to financial constraints . I treat him again and gave him the p.o. dose of prednisone,, he still has prescription from the other day I instruct him on discount pharmacies in area .. he will follow-up as an outpatient Rashi give HFA from our [facility] due to severe finacial limitation to treatment as OUTPT Diagnosis Primary Impression: COPD (chronic obstructive pulmonary disease) Qualified Codes: J42 - Unspecified chronic bronchitis Patient Instructions: COPD (Chronic Obstructive Pulmonary Disease) (ED), General Instructions Disposition: DISCHARGE HOME Condition: Ad Ridley MD Feb 03, 2018 05:50
[2018-02-03] MEDS ORDERED: RESP: ALBUTEROL 2.5 MG/IPRATROPIUM 0.5 MG NEB (SCH) NEB ONE ×2 (06:00→06:30)
[2018-02-03] MEDS ORDERED: predniSONE 20 MG TAB PO ONE (06:15)
[2018-02-03] MEDS ORDERED: ALBUTEROL SULFATE 90 MCG/ACT HFA 8 GM INHALER INH ONE (06:45)
== END 2018-02-03 07:25 | disposition home or self-care (01) ==
LOC: NEPE 05:19
DX: J44.9 Chronic obstructive pulmonary disease, unspecified (principal); F17.210 Nicotine dependence, cigarettes, uncomplicated
CPT/HCPCS: 94640; 94664; 99283; J7512

== ENCOUNTER 2018-02-08 03:26 | Emergency (ER) | payer MEDICARE, MEDICAID ==
[2018-02-08 03:27] VITALS: BP 161/85; PULSE 82; RESP 24; TEMP 97.6; O2SAT 97
--- NOTE | 2018-02-08 03:53 | PD ---
HPI Chief Complaint: Respiratory Symptoms Time Seen by Provider: 03:47 Travel History International Travel<30 days: No Contact w/Intl Traveler<30days: No Traveled to known affect area: No History of Present Illness HPI Patient presents to the emergency department complaining of COPD exacerbation. States that he is out of his meds for approximately 10 days and advises that he was seen at [facility] approximately 4 days ago. But apparently they only gave him a small inhaler. He denies fever, chills, nausea, vomiting, lower extremity edema. He does report cough, shortness of breath, and chest pain. His pain is described as being diffuse and related to his rib fractures that were sustained a month ago. PFSH Past Medical History Asthma: Yes COPD: Yes Diminished Hearing: No Respiratory: Yes Immunizations Current: Yes Past Surgical History Abdominal Surgery: Yes (HERNIA REPAIR) Other Surgery: Yes (hernia surgery 3 hrs) Social History Alcohol Use: Yes (8 beers occasionally) Tobacco Use: Yes (8 cigs per day.) Substance Use: No Allergies-Medications (Allergen,Severity, Reaction): Coded Allergies: No Known Allergies (Verified Allergy, Unknown, 02/08/18) Reported Meds & Prescriptions Reported Meds & Active Scripts Active Ventolin Hfa 18 GM Inh (Albuterol Sulfate) 90 Mcg/Act Aer 2 Puff INH Q4-6H PRN 30 Days Prednisone 20 Mg Tab 40 Mg PO DAILY 5 Days Take 40 mg (2 tablets) daily for 5 days Proair Hfa 8.5 GM Inh (Albuterol Sulfate) 90 Mcg/Act Aer 2 Puff INH Q4-6H PRN 108 mcg/actuation Symbicort Inh (Budesonide/Formoterol Fumarate) 160-4.5 Mcg/Act Aero 1 Puff INH Q12HR Medrol Dosepak (Methylprednisolone) 4 Mg Dspk 4 Mg PO DIRECTED Per Pharmacist direction Levaquin (Levofloxacin) 750 Mg Tablet 750 Mg PO DAILY Proair Hfa 8.5 GM Inh (Albuterol Sulfate) 90 Mcg/Act Aer 2 Puff INH Q4-6H PRN 108 mcg/actuation Physical Exam Narrative GENERAL: No acute distress. SKIN: Focused skin assessment warm/dry. HEAD: Atraumatic. Normocephalic. EYES: Extraocular muscles intact bilaterally. No injection or drainage. ENT: No nasal bleeding or discharge. Mucous membranes pink and moist. NECK: Trachea midline. No JVD. CARDIOVASCULAR: Regular rate and rhythm. No murmur appreciated. RESPIRATORY: No accessory muscle use. Bilateral expiratory wheezes. GASTROINTESTINAL: Abdomen soft, non-tender, nondistended. Hepatic and splenic margins not palpable. MUSCULOSKELETAL: No obvious deformities. No clubbing. No cyanosis. No edema. NEUROLOGICAL: Awake and alert. No obvious cranial nerve deficits. Motor grossly within normal limits. Normal speech. PSYCHIATRIC: Appropriate mood and affect; insight and judgment normal. Data Data Last Documented VS Vital Signs Date Time Temp Pulse Resp B/P (MAP) Pulse Ox O2 Delivery O2 Flow Rate FiO2 02/08/18 04:09 95 Room Air 02/08/18 04:09 28 02/08/18 03:27 97.6 82 161/85 (110) Orders Orders Complete Blood Count With Diff (02/08/18 03:47) Comprehensive Metabolic Panel (02/08/18 03:47) Magnesium (Mg) (02/08/18 03:47) Ckmb (Isoenzyme) Profile (02/08/18 03:47) Troponin I (02/08/18 03:47) Iv Access Insert/Monitor (02/08/18 03:47) Electrocardiogram (02/08/18 03:47) Ecg Monitoring (02/08/18 03:47) Oximetry (02/08/18 03:47) Oxygen Administration (02/08/18 03:47) Sodium Chloride 0.9% Flush (Ns Flush) (02/08/18 04:00) Methylprednisolone So Succ Inj (Solumedr (02/08/18 04:00) Albuterol-Ipratropium Neb (Duoneb Neb) (02/08/18 04:00) Chest, Single Ap (02/08/18 03:47) CKMB (02/08/18 04:00) CKMB% (02/08/18 04:00) Labs Laboratory Tests Test 02/08/18 04:00 White Blood Count 7.2 TH/MM3 Red Blood Count 4.21 MIL/MM3 Hemoglobin 13.3 GM/DL Hematocrit 39.2 % Mean Corpuscular Volume 93.2 FL Mean Corpuscular Hemoglobin 31.7 PG Mean Corpuscular Hemoglobin Concent 34.0 % Red Cell Distribution Width 14.1 % Platelet Count 298 TH/MM3 Mean Platelet Volume 8.3 FL Neutrophils (%) (Auto) 44.3 % Lymphocytes (%) (Auto) 32.3 % Monocytes (%) (Auto) 8.6 % Eosinophils (%) (Auto) 12.7 % Basophils (%) (Auto) 2.1 % Neutrophils # (Auto) 3.2 TH/MM3 Lymphocytes # (Auto) 2.3 TH/MM3 Monocytes # (Auto) 0.6 TH/MM3 Eosinophils # (Auto) 0.9 TH/MM3 Basophils # (Auto) 0.2 TH/MM3 CBC Comment DIFF FINAL Differential Comment Blood Urea Nitrogen 16 MG/DL Creatinine 0.61 MG/DL Random Glucose 81 MG/DL Total Protein 5.8 GM/DL Albumin 3.2 GM/DL Calcium Level 8.0 MG/DL Magnesium Level 2.1 MG/DL Alkaline Phosphatase 89 U/L Aspartate Amino Transf (AST/SGOT) 13 U/L Alanine Aminotransferase (ALT/SGPT) 18 U/L Total Bilirubin 0.3 MG/DL Sodium Level 143 MEQ/L Potassium Level 3.9 MEQ/L Chloride Level 107 MEQ/L Carbon Dioxide Level 31.5 MEQ/L Anion Gap 5 MEQ/L Estimat Glomerular Filtration Rate 133 ML/MIN Total Creatine Kinase 101 U/L Creatine Kinase MB 5.3 NG/ML Troponin I LESS THAN 0.02 NG/ML MDM Medical Decision Making Medical Screen Exam Complete: Yes Emergency Medical Condition: Yes Interpretation(s) EKG: Rate 70, sinus rhythm, normal intervals, normal axis, no ST elevation or depression. Labs: Increased CKMB (prior increased as well), Last Impressions Chest X-Ray 02/08/18 8547 Signed Impressions: Service Date/Time: February 04:15 - CONCLUSION: 1. Left-sided rib fractures. 2. Regional soft tissue density could represent some associated pleural thickening. 3. Lungs are otherwise clear but hyperinflated Norm Perrin MD Differential Diagnosis COPD exacerbation, pneumonia, pulmonary edema, CHF, ACS Narrative Course Patient presents to the emergency department complaining of COPD exacerbation. He is afebrile with stable vital signs and wheezing on exam. Will check EKG, cardiac enzymes, chest x-ray, and baseline labs. We will also give 125 mg IV of prednisolone and DuoNebs. 0524: Patient reports feeling better after the 2 duo nebs and IV steroids, and states that he is ready to go. Requesting coffee and cookie before he is discharged. Diagnosis Primary Impression: COPD exacerbation Patient Instructions: COPD (Chronic Obstructive Pulmonary Disease) (ED), General Instructions Additional Instructions: Return to ER for chest pain, fever, worsening shortness of breath, or for any new/worrisome/worsening symptoms. Med/Other Pt SpecificInfo: Prescription(s) given Scripts Albuterol 18 GM Inh (Ventolin Hfa 18 GM Inh) 90 Mcg/Act Aer 2 PUFF INH Q4-6H Y for SHORTNESS OF BREATH for 30 Days, #1 INHALER 0 Refills Prov: Rima Christianson MD 02/08/18 Prednisone (Prednisone) 20 Mg Tab 40 MG PO DAILY for 5 Days, #10 TAB 0 Refills Take 40 mg (2 tablets) daily for 5 days Prov: Rima Christianson MD 02/08/18 Disposition: 01 DISCHARGE HOME Condition: Stable Rima Christianson MD February 08, 2018 03:53
[2018-02-08] MEDS ORDERED: methylPREDNISolone SOD SUCC 125 MG/2 ML VIAL IV PUSH ONE (04:00)
[2018-02-08] MEDS ORDERED: SODIUM CHLORIDE 0.9% FLUSH 10 ML FLUSH IVF PRN (04:00)
[2018-02-08] MEDS: RESP: ALBUTEROL 2.5 MG/IPRATROPIUM 0.5 MG NEB (SCH) INH (04:03)
[2018-02-08 04:09] VITALS: RESP 28
[2018-02-08 04:12] LABS: AUTOMATED NEUTROPHIL # 3.2 TH/MM3 (1.8-7.7); BASOPHIL # 0.2 TH/MM3 (0-0.2); BASOPHIL % 2.1 % (0.0-2.0); EOSINOPHIL # 0.9 TH/MM3 (0-0.4); EOSINOPHIL % 12.7 % (0.0-4.0); HEMATOCRIT 39.2 % (39.0-51.0); HEMOGLOBIN 13.3 GM/DL (13.0-17.0); LYMPH % 32.3 % (9.0-44.0); LYMPHOCYTE # 2.3 TH/MM3 (1.0-4.8); MEAN CELL VOLUME 93.2 FL (80.0-100.0); MEAN CORPUSCULAR HEMOGLOBIN 31.7 PG (27.0-34.0); MEAN PLATELET VOLUME 8.3 FL (7.0-11.0); MONO % 8.6 % (0.0-8.0); MONOCYTE # 0.6 TH/MM3 (0-0.9); NEUT % 44.3 % (16.0-70.0); PLATELET COUNT 298 TH/MM3 (150-450); RED BLOOD COUNT 4.21 MIL/MM3 (4.50-5.90); RED CELL DISTRIBUTION WIDTH 14.1 % (11.6-17.2); WHITE BLOOD COUNT 7.2 TH/MM3 (4.0-11.0)
[2018-02-08 04:32] LABS: ALBUMIN 3.2 GM/DL (3.4-5.0); ALT (GPT) 18 U/L (12-78); AST (GOT) 13 U/L (15-37); BICARBONATE 31.5 MEQ/L (21.0-32.0); BLOOD UREA NITROGEN 16 MG/DL (7-18); CHLORIDE 107 MEQ/L (98-107); CREATININE 0.61 MG/DL (0.60-1.30); GLOMERULAR FILTRATION RATE 133 ML/MIN (>89); GLUCOSE,RANDOM 81 MG/DL (74-106); MAGNESIUM 2.1 MG/DL (1.5-2.5); SODIUM (NA) 143 MEQ/L (136-145)
[2018-02-08 04:36] LABS: ALKALINE PHOSPHATASE 89 U/L (45-117); TOTAL BILIRUBIN ADULT 0.3 MG/DL (0.2-1.0); TOTAL PROTEIN 5.8 GM/DL (6.4-8.2); TROPONIN I LESS THAN 0.02 NG/ML (0.02-0.05)
--- NOTE | 2018-02-08 05:01 | RADRPT ---
EXAM DATE/TIME: 02/08/2018 04:15 [place] COMPARISON: CHEST SINGLE AP, January 24, 2018, 5:44. INDICATIONS : Short of breath. MEDICAL HISTORY : Chronic obstructive pulmonary disease. SURGICAL HISTORY : None. ENCOUNTER: Initial ACUITY: 1 day PAIN SCORE: 0/10 LOCATION: Bilateral chest FINDINGS: A single view of the chest demonstrates the lungs to be symmetrically hyperinflated. Again noted are mildly displaced posterolateral rib fractures involving numbers 7 and 8 on the left. Regional soft ti ssue density could represent associated pleural thickening. Lungs are otherwise clear. Heart size is normal. Mild degenerative spurring of the dorsal spine CONCLUSION: 1. Left-sided rib fractures. 2. Regional soft tissue density could represent some associated pleural thickening. 3. Lungs are otherwise clear but hyperinflated Norm Perrin MD on February 08, 2018 at 4:56 Board Certified Radiologist. This report was verified electronically.
[2018-02-08] MEDS ORDERED: VENTAER INH (05:31)
[2018-02-08] MEDS ORDERED: PRED20 PO (05:31)
[2018-02-08 05:38] VITALS: BP 120/64; PULSE 84; RESP 18; O2SAT 97
--- NOTE | 2018-02-08 14:22 | EKG ---
Date Performed: 02/08/2018 Time Performed: 03:57:54 PTAGE: 67 years EKG: Sinus rhythm NORMAL ECG Since the PREVIOUS TRACING , no significant change noted PREVIOUS TRACIN01/24/2018 05.03 DOCTOR: Nieves Maldonado Interpretating Date/Time 02/08/2018 14:18:26
== END 2018-02-08 06:02 | disposition home or self-care (01) ==
LOC: NEPC 03:26
DX: J44.1 Chronic obstructive pulmonary disease with (acute) exacerbation (principal); F17.210 Nicotine dependence, cigarettes, uncomplicated; R06.02 Shortness of breath; Z79.899 Other long term (current) drug therapy
CPT/HCPCS: 71045; 80053; 82550; 82552; 83735; 84484; 85025; 93005; 94640; 94664; 96374; 99285; J2930

== ENCOUNTER 2018-02-19 00:25 | Emergency (ER) | payer MEDICARE, OTHER ==
[~2018-02-19] VITALS: Ht 182.9 cm; Wt 75.0 kg
[~2018-02-19 00:25] MED LIST changes: +PRED20 PO; +VENTAER INH
[2018-02-19 00:36] VITALS: BP 154/77; PULSE 70; RESP 18; TEMP 97.8; O2SAT 97
--- NOTE | 2018-02-19 01:07 | PD ---
HPI Chief Complaint: Skin Problem Time Seen by Provider: 00:34 Travel History International Travel<30 days: No Contact w/Intl Traveler<30days: No Traveled to known affect area: No History of Present Illness HPI 67-year-old white male presents emergency department for evaluation of a possible insect bite to his left arm which he has had now for the past 6 months. He states that it is very pruritic in nature when he picks and irritates it on a daily basis. He denies any fever chills. No drainage. History Past Medical Histgory Narrative Medical COPD Tetanus Vaccination: Unknown Social History Alcohol Use: Yes (8 beers occasionally) Tobacco Use: Yes (8 cigs per day.) Allergies-Medications (Allergen,Severity, Reaction): Coded Allergies: No Known Allergies (Verified Allergy, Unknown, 02/19/18) Reported Meds & Prescriptions Reported Meds & Active Scripts Active Ventolin Hfa 18 GM Inh (Albuterol Sulfate) 90 Mcg/Act Aer 2 Puff INH Q4-6H PRN 30 Days Prednisone 20 Mg Tab 40 Mg PO DAILY 5 Days Take 40 mg (2 tablets) daily for 5 days Proair Hfa 8.5 GM Inh (Albuterol Sulfate) 90 Mcg/Act Aer 2 Puff INH Q4-6H PRN 108 mcg/actuation Symbicort Inh (Budesonide/Formoterol Fumarate) 160-4.5 Mcg/Act Aero 1 Puff INH Q12HR Medrol Dosepak (Methylprednisolone) 4 Mg Dspk 4 Mg PO DIRECTED Per Pharmacist direction Levaquin (Levofloxacin) 750 Mg Tablet 750 Mg PO DAILY Proair Hfa 8.5 GM Inh (Albuterol Sulfate) 90 Mcg/Act Aer 2 Puff INH Q4-6H PRN 108 mcg/actuation Review of Systems General / Constitutional: No: Fever Eyes: No: Visual changes HENT: No: Headaches Cardiovascular: No: Chest Pain or Discomfort Respiratory: Positive: Shortness of Breath Gastrointestinal: No: Abdominal Pain Genitourinary: No: Dysuria Musculoskeletal: No: Pain Skin: Positive Rash, Positive Itching Neurologic: No: Weakness Psychiatric: No: Depression Endocrine: No: Polydipsia Hematologic/Lymphatic: No: Easy Bruising Physical Exam Narrative GENERAL: Well-developed, well-nourished in no acute distress. Nontoxic appearing. HEAD: Normocephalic, atraumatic. EYES: Pupils equal round and reactive. Extraocular motions intact. No scleral icterus. No injection or drainage. ENT: TMs clear without erythema. The external auditory canals clear. Nose: clear . Posterior pharynx is pink and moist. No tonsillar edema or exudate. Uvula midline. Airway patent. NECK: Trachea midline.Supple, nontender, moves head freely. No central bony tenderness or spasm. CARDIOVASCULAR: Regular rate and rhythm without murmurs, gallops, or rubs. RESPIRATORY: Clear to auscultation. Breath sounds equal bilaterally. No wheezes , rales, or rhonchi. GASTROINTESTINAL: Abdomen soft, non-tender, nondistended. No hepato-splenomegaly , or palpable masses. No guarding. EXTREMITIES: No clubbing, cyanosis, or edema. No joint tenderness, effusion, or edema noted. BACK: Nontender without deformity or crepitance. No flank tenderness. Patient has a 1 cm excoriated lesion to his medial left elbow. It does not appear to be infected. No erythema. Data Data Last Documented VS Vital Signs Date Time Temp Pulse Resp B/P (MAP) Pulse Ox O2 Delivery O2 Flow Rate FiO2 02/19/18 00:36 97.8 70 18 154/77 (102) 97 MDM Medical Screen Exam Complete: Yes Emergency Medical Condition: No Differential Diagnosis MDM: High Differential diagnoses: Abscess, folliculitis, cellulitis, lymphangitis, abrasion, contact dermatitis Narrative Course A medical screening exam was performed: At the time of evaluation the presenting medical condition was determined not to be of an emergent nature. The patient was given the option of receiving additional care, but declined. Patient was given options for additional community resources from which to obtain care. The Patient Has Been advised to seek medical attention for their presenting complaint. The patient has been advised to return to the ER at any time if an emergent condition develops. Primary Impression: Encounter for medical screening examination Condition: Cesar Ramirez February 19, 2018 01:07
== END 2018-02-19 01:29 | disposition left against medical advice (07) ==
LOC: NEPD 00:25
DX: L29.9 Pruritus, unspecified (principal)
CPT/HCPCS: 99281

== ENCOUNTER 2018-03-09 20:55 | Emergency (ER) | payer MEDICARE, OTHER ==
[~2018-03-09] VITALS: Ht 175.3 cm; Wt 63.6 kg
[2018-03-09 21:01] VITALS: BP 135/77; PULSE 86; RESP 26; TEMP 98; O2SAT 99
--- NOTE | 2018-03-09 21:11 | PD ---
HPI Chief Complaint: Respiratory Distress Time Seen by Provider: 21:04 Travel History International Travel<30 days: No Contact w/Intl Traveler<30days: No Traveled to known affect area: No History of Present Illness HPI 67-year-old male patient with history of asthma, presents to the ER today because he started having shortness of breath, but had ran out of his inhaler due to problems with obtaining his medications from his pharmacy, and here brought in by EMS, they had given him Solu-Medrol and several nebulizers in the ER and he reports feeling better at the moment. He denies any fevers, chest pains, or other issues. Modifying Factors: None Associated Signs & Symptoms: Shortness of breath, ran out of medications Risk Factors: Asthma PFSH Past Medical History Asthma: Yes COPD: Yes Diminished Hearing: No Respiratory: Yes Immunizations Current: Yes Past Surgical History Abdominal Surgery: Yes (HERNIA REPAIR) Other Surgery: Yes (hernia surgery 3 hrs) Social History Alcohol Use: Yes (8 beers occasionally) Tobacco Use: Yes (8 cigs per day.) Substance Use: No Allergies-Medications (Allergen,Severity, Reaction): Coded Allergies: No Known Allergies (Verified Allergy, Unknown, 02/19/18) Reported Meds & Prescriptions Reported Meds & Active Scripts Active Ventolin Hfa 18 GM Inh (Albuterol Sulfate) 90 Mcg/Act Aer 2 Puff INH Q4-6H PRN 30 Days Symbicort Inh (Budesonide/Formoterol Fumarate) 160-4.5 Mcg/Act Aero 1 Puff INH Q12HR Review of Systems Except as stated in HPI: all other systems reviewed are Neg Physical Exam Narrative GENERAL: Well-developed elderly white male patient currently in mild respiratory distress. Awake and oriented 3. SKIN: Focused skin assessment warm/dry. HEAD: Atraumatic. Normocephalic. EYES: Pupils equal and round. No scleral icterus. No injection or drainage. ENT: No nasal bleeding or discharge. Mucous membranes pink and moist. NECK: Trachea midline. No JVD. CARDIOVASCULAR: Regular rate and rhythm. No murmur appreciated. RESPIRATORY: No accessory muscle use. Mild bilateral wheezing. Breath sounds equal bilaterally. GASTROINTESTINAL: Abdomen soft, non-tender, nondistended. Hepatic and splenic margins not palpable. MUSCULOSKELETAL: No obvious deformities. No clubbing. No cyanosis. No edema. NEUROLOGICAL: Awake and alert. No obvious cranial nerve deficits. Motor grossly within normal limits. Normal speech. PSYCHIATRIC: Appropriate mood and affect; insight and judgment normal. Data Data Last Documented VS Vital Signs Date Time Temp Pulse Resp B/P (MAP) Pulse Ox O2 Delivery O2 Flow Rate FiO2 03/09/18 21:15 96 Room Air 03/09/18 21:01 98.0 86 26 135/77 (96) Orders Orders Complete Blood Count With Diff (03/09/18 21:04) Basic Metabolic Panel (Bmp) (03/09/18 21:04) B-Type Natriuretic Peptide (03/09/18 21:04) Iv Access Insert/Monitor (03/09/18 21:04) Ecg Monitoring (03/09/18 21:04) Oximetry (03/09/18 21:04) Oxygen Administration (03/09/18 21:04) Chest, Single Ap (03/09/18 21:04) Sodium Chloride 0.9% Flush (Ns Flush) (03/09/18 21:15) Albuterol-Ipratropium Neb (Duoneb Neb) (03/09/18 21:45) Ed Discharge Order (03/09/18 22:37) Labs Laboratory Tests Test 03/09/18 21:12 White Blood Count 6.6 TH/MM3 Red Blood Count 4.38 MIL/MM3 Hemoglobin 13.4 GM/DL Hematocrit 39.7 % Mean Corpuscular Volume 90.6 FL Mean Corpuscular Hemoglobin 30.6 PG Mean Corpuscular Hemoglobin Concent 33.8 % Red Cell Distribution Width 13.7 % Platelet Count 347 TH/MM3 Mean Platelet Volume 8.1 FL Neutrophils (%) (Auto) 47.9 % Lymphocytes (%) (Auto) 37.8 % Monocytes (%) (Auto) 6.3 % Eosinophils (%) (Auto) 6.6 % Basophils (%) (Auto) 1.4 % Neutrophils # (Auto) 3.2 TH/MM3 Lymphocytes # (Auto) 2.5 TH/MM3 Monocytes # (Auto) 0.4 TH/MM3 Eosinophils # (Auto) 0.4 TH/MM3 Basophils # (Auto) 0.1 TH/MM3 CBC Comment DIFF FINAL Differential Comment Blood Urea Nitrogen 12 MG/DL Creatinine 0.75 MG/DL Random Glucose 127 MG/DL Calcium Level 8.3 MG/DL Sodium Level 141 MEQ/L Potassium Level 3.6 MEQ/L Chloride Level 106 MEQ/L Carbon Dioxide Level 24.6 MEQ/L Anion Gap 10 MEQ/L Estimat Glomerular Filtration Rate 105 ML/MIN B-Type Natriuretic Peptide 12 PG/ML MDM Medical Decision Making Medical Screen Exam Complete: Yes Emergency Medical Condition: Yes Medical Record Reviewed: Yes Interpretation(s) EKG shows NSR, no ST elevation or depression, and no arrhythmias. No significant T-wave inversions. Laboratory Tests Test 03/09/18 21:12 Red Blood Count 4.38 MIL/MM3 (4.50-5.90) Eosinophils (%) (Auto) 6.6 % (0.0-4.0) Random Glucose 127 MG/DL (74-106) Calcium Level 8.3 MG/DL (8.5-10.1) Last 24 hours Impressions Chest X-Ray 03/09/182103 Signed Impressions: CONCLUSION: 1. No acute cardiopulmonary disease. 2. Healing left rib fractures with no pneumothorax. Differential Diagnosis Asthma exacerbation versus pneumonia versus CHF Narrative Course Patient was continued on nebulizers in the ER. Chest x-ray did not show any signs of acute processes. He was reevaluated at 10:30 PM, states that he is feeling much better and wants to go home. At this point, my plan would be to release him with follow-up to primary care doctor. He states that he has another medications which she will receive at [facility] tomorrow. Return for any worsening in symptoms as needed. The plan has been discussed with him he states understanding. Diagnosis Primary Impression: Asthma exacerbation Disposition: 01 DISCHARGE HOME Condition: Stable Margi Moctezuma MD Mar 09, 2018 21:11
[2018-03-09] MEDS ORDERED: SODIUM CHLORIDE 0.9% FLUSH 10 ML FLUSH IVF PRN (21:15)
[2018-03-09 21:43] LABS: AUTOMATED NEUTROPHIL # 3.2 TH/MM3 (1.8-7.7); BASOPHIL # 0.1 TH/MM3 (0-0.2); BASOPHIL % 1.4 % (0.0-2.0); EOSINOPHIL # 0.4 TH/MM3 (0-0.4); EOSINOPHIL % 6.6 % (0.0-4.0); HEMATOCRIT 39.7 % (39.0-51.0); HEMOGLOBIN 13.4 GM/DL (13.0-17.0); LYMPH % 37.8 % (9.0-44.0); LYMPHOCYTE # 2.5 TH/MM3 (1.0-4.8); MEAN CELL VOLUME 90.6 FL (80.0-100.0); MEAN CORPUSCULAR HEMOGLOBIN 30.6 PG (27.0-34.0); MEAN CORPUSCULAR HGB CONC 33.8 % (32.0-36.0); MEAN PLATELET VOLUME 8.1 FL (7.0-11.0); MONO % 6.3 % (0.0-8.0); MONOCYTE # 0.4 TH/MM3 (0-0.9); NEUT % 47.9 % (16.0-70.0); PLATELET COUNT 347 TH/MM3 (150-450); RED BLOOD COUNT 4.38 MIL/MM3 (4.50-5.90); RED CELL DISTRIBUTION WIDTH 13.7 % (11.6-17.2); WHITE BLOOD COUNT 6.6 TH/MM3 (4.0-11.0)
[2018-03-09] MEDS ORDERED: RESP: ALBUTEROL 2.5 MG/IPRATROPIUM 0.5 MG NEB (SCH) INH ONE (21:45)
[2018-03-09 21:56] LABS: BICARBONATE 24.6 MEQ/L (21.0-32.0); CALCIUM 8.3 MG/DL (8.5-10.1); CREATININE 0.75 MG/DL (0.60-1.30)
--- NOTE | 2018-03-09 21:57 | RADRPT ---
EXAM DATE: 03/09/2018 9:53 PM EDT AGE/SEX: 67 years / Male INDICATIONS: Shortness of breath. No left rib fractures. CLINICAL DATA: This is the patient's initial encounter. Patient reports that signs and symptoms have been present for 1 day and indicates a pain score of 2/10. MEDICAL/SURGICAL HISTORY: . Chronic obstructive pulmonary disease. Emphysema. None. COMPARISON: [facility] [place], CHEST SINGLE AP, 02/08/2018. . FINDINGS: 2 AP semierect portable views of the chest were obtained and again demonstrate the healing left rib f ractures involving the posterior lateral 10th and eighth ribs. There is no pneumothorax. There are no new infiltrates or effusions. The heart and mediastinal structures remain with no perihilar edema. T here are overlying electrocardiogram leads. The bony thorax is otherwise intact. CONCLUSION: 1. No acute cardiopulmonary disease. 2. Healing left rib fractures with no pneumothorax. Electronically signed by: Balbir Child MD 03/09/2018 9:55 PM EDT
--- NOTE | 2018-03-10 15:07 | EKG ---
Date Performed: 03/09/2018 Time Performed: 21:03:30 PTAGE: 67 years EKG: Sinus rhythm NORMAL ECG PREVIOUS TRACING 02/08/18 Since the previous tracing, no significant change noted DOCTOR: Neel Crawley Interpretating Date/Time 03/10/2018 15:05:39
== END 2018-03-09 23:06 | disposition home or self-care (01) ==
LOC: NEPE 20:55
DX: J45.901 Unspecified asthma with (acute) exacerbation (principal); J44.9 Chronic obstructive pulmonary disease, unspecified; F17.210 Nicotine dependence, cigarettes, uncomplicated; Z79.51 Long term (current) use of inhaled steroids
CPT/HCPCS: 71045; 80048; 83880; 85025; 93005; 94664

== ENCOUNTER 2018-03-13 03:59 | Emergency (ER) | payer MEDICARE, OTHER ==
[~2018-03-13] VITALS: Ht 175.3 cm; Wt 64.0 kg
[~2018-03-13 03:59] MED LIST changes: -ALBUAER3 INH; -LEVA750T9 PO; -MEDR4PAK PO; -PRED20 PO
[2018-03-13 04:18] VITALS: BP 141/68; PULSE 74; RESP 20; TEMP 97.9; O2SAT 95
[2018-03-13] MEDS ORDERED: RESP: ALBUTEROL 2.5 MG/IPRATROPIUM 0.5 MG NEB (SCH) NEB ONE (06:15)
[2018-03-13] MEDS ORDERED: ALBUAER3 INH (06:23)
[2018-03-13] MEDS ORDERED: ADVA115A INH (06:23)
--- NOTE | 2018-03-13 06:25 | PD ---
HPI Chief Complaint: Respiratory Symptoms Time Seen by Provider: 04:37 Travel History International Travel<30 days: No Contact w/Intl Traveler<30days: No Traveled to known affect area: No History of Present Illness HPI The patient is a 67 year old male who presents to the [facility] emergency department with a history of exacerbation of shortness of breath that began prior to arrival. The patient reports that he is nearly out of his pro-air inhaler and is concerned about running out. The patient also reports that he has been on Symbicort for the last several years, however it is no longer covered by his insurance. He is having difficulty obtaining an alternative from his primary care physician. He reports that he was on Advair for years prior to starting on the Symbicort. He is unsure if this is covered by his insurance. He continues to smoke 6-8 cigarettes per day. He also chews tobacco. He denies having any increased productivity to his cough. On review of systems otherwise, he denies having current chest congestion, fevers or chills, neck pain, chest pain, abdominal pain, vomiting, diarrhea, urinary symptoms, or neurologic symptoms. [facility]LY [facility] Past Medical History Narrative Medical The patient's past medical history is significant for asthma in childhood, COPD , tobacco abuse Asthma: Yes COPD: Yes Diminished Hearing: No Respiratory: Yes Immunizations Current: Yes Past Surgical History Narrative Surgical The patient's past surgical history is significant for hernia repair. Abdominal Surgery: Yes (HERNIA REPAIR) Other Surgery: Yes (hernia surgery 3 hrs) Social History Alcohol Use: Yes (8 beers occasionally) Tobacco Use: Yes (8 cigs per day.) Substance Use: No Allergies-Medications (Allergen,Severity, Reaction): Coded Allergies: No Known Allergies (Verified Allergy, Unknown, 03/13/18) Reported Meds & Prescriptions Reported Meds & Active Scripts Active Advair Hfa 12 GM Inh (Fluticasone-Salmeterol 12 GM Inh) 115-21 Mcg/Act Aer 2 Puff INH BID Proair Hfa 8.5 GM Inh (Albuterol Sulfate) 90 Mcg/Act Aer 2 Puff INH Q4-6H PRN 108 mcg/actuation Review of Systems Except as stated in HPI: all other systems reviewed are Neg General / Constitutional: No: Fever Eyes: No: Visual changes HENT: No: Headaches, Congestion Cardiovascular: No: Chest Pain or Discomfort Respiratory: Positive: Cough, Shortness of Breath, Wheezing Gastrointestinal: No: Abdominal Pain Genitourinary: No: Dysuria Musculoskeletal: No: Pain Skin: No Rash Neurologic: No: Weakness, Focal Abnormalities, Change in Mentation, Slurred Speech, Sensory Disturbance Psychiatric: No: Depression Endocrine: No: Polydipsia Hematologic/Lymphatic: No: Easy Bruising Physical Exam Narrative General: The patient is a well-developed well-nourished male in no acute distress. Head and Neck exam: Head is normocephalic atraumatic. Eyes: EOMI, pupils are equal round and reactive to light. Nose: Midline septum with pink mucous membranes Mouth: The patient is noted to be missing multiple teeth. The patient has dental decay noted. No gingival erythema or akin abscess formation noted. Moist mucus membranes. Posterior oropharynx is not erythematous. No tonsillar hypertrophy. Uvula midline. Airway patent. Neck: No palpable lymphadenopathy. No nuchal rigidity. No thyromegaly. Cardiovascular: Regular rate and rhythm without murmurs, gallops, or rubs. No pulse deficit to the extremities on simultaneous auscultation and palpation of his radial artery. Lungs: Soft expiratory wheezes are audible throughout bilateral lung baugh, no rhonchi , no crackles. No accessory muscle use noted. No paroxysmal abdominal breathing or tripoding. No conversational dyspnea. Abdomen: Soft, without tenderness to palpation in all 4 quadrants of the abdomen. No guarding, rebound, or rigidity. Normal bowel sounds are audible. No tenderness on palpation of McBurney's point. Extremities: No clubbing, cyanosis, or edema. 2+ pulses in all 4 extremities. No calf tenderness on palpation. Back: No spinous process tenderness to palpation. No costovertebral angle tenderness to palpation. Neurologic Exam: Grossly nonfocal. Skin Exam: No rash noted. Intact skin that is warm and dry. Data Data Last Documented VS Vital Signs Date Time Temp Pulse Resp B/P (MAP) Pulse Ox O2 Delivery O2 Flow Rate FiO2 03/13/18 06:27 94 21 03/13/18 04:49 Room Air 03/13/18 04:18 97.9 74 20 141/68 (92) Orders Orders Albuterol-Ipratropium Neb (Duoneb Neb) (03/13/18 06:15) [facility] Medical Decision Making Medical Screen Exam Complete: Yes Emergency Medical Condition: Yes Medical Record Reviewed: Yes Differential Diagnosis COPD exacerbation, versus medication refill, versus pneumonia, versus pneumothorax Narrative Course During the course of the patient's emergency department visit, the patient's history, examination, and differential diagnosis were reviewed with the patient. The patient was provided a DuoNeb 1. The patient's electronic medical record was reviewed. The patient has been to the emergency department on multiple occasions and had laboratory studies and recent chest x-ray that showed no acute abnormality. Based on the patient's examination additional studies are not indicated currently. The patient will be given a refill of his pro-air inhaler. The patient was also given a prescription for an Advair inhaler to substitute for his Symbicort as it is no longer covered by his insurance. The patient is resting comfortably and feels better, is alert and in no distress. The patient's examination findings were discussed with the patient. The repeat examination is unremarkable and benign. The history, exam, diagnostic testing, and current condition do not suggest any significant pathology to warrant further testing, continued ED treatment, admission, or surgical evaluation at this point. The vital signs have been stable. The patient does not have uncontrollable pain, intractable vomiting, or other significant symptoms. The patient's condition is stable and appropriate for discharge. The patient will pursue further outpatient evaluation with a primary care physician or other designated or consulting physician as indicated in the discharge instructions. The patient is instructed to report back to the emergency department immediately for reexamination in the mean time if he develops any new or worsening signs or symptoms. The patient expressed understanding and was agreeable with this plan. Diagnosis Primary Impression: Encounter for medication refill Additional Impression: COPD (chronic obstructive pulmonary disease) Qualified Codes: J43.9 - Emphysema, unspecified Patient Instructions: COPD (Chronic Obstructive Pulmonary Disease) (ED), General Instructions Med/Other Pt SpecificInfo: Prescription(s) given Scripts Fluticasone-Salmeterol 12 GM Inh (Advair Hfa 12 GM Inh) 115-21 Mcg/Act Aer 2 PUFF INH BID, #1 INHALER 0 Refills Prov: Yesika Whitten MD 03/13/18 Albuterol 8.5 GM Inh (Proair Hfa 8.5 GM Inh) 90 Mcg/Act Aer 2 PUFF INH Q4-6H Y for SHORTNESS OF BREATH, #1 INHALER 0 Refills 108 mcg/actuation Prov: Yesika Whitten MD 03/13/18 Disposition: 01 DISCHARGE HOME Condition: Stable Yesika Whitten MD Mar 13, 2018 06:25
[2018-03-13 06:27] VITALS: O2SAT 94
[2018-03-22] MEDS ORDERED: ADVA230A INH (15:27)
== END 2018-03-13 06:36 | disposition home or self-care (01) ==
LOC: NEPC 03:59
DX: Z76.0 Encounter for issue of repeat prescription (principal); J44.9 Chronic obstructive pulmonary disease, unspecified; F17.210 Nicotine dependence, cigarettes, uncomplicated
CPT/HCPCS: 94664; 99281

== ENCOUNTER 2018-03-16 14:02 | Emergency (ER) | payer MEDICARE, OTHER ==
[~2018-03-16] VITALS: Ht 175.3 cm; Wt 65.0 kg
[~2018-03-16 14:02] MED LIST changes: +ADVA115A INH; +ALBUAER3 INH; -SYMB160A INH; -VENTAER INH
[2018-03-16 14:23] VITALS: BP 102/60; PULSE 89; RESP 14; TEMP 98.3; O2SAT 95
[2018-03-16] MEDS ORDERED: SODIUM CHLOR 0.9% 1000 ML INJ 1,000 ML IV SCH (14:56)
[2018-03-16] MEDS ORDERED: SODIUM CHLORIDE 0.9% FLUSH 10 ML FLUSH IV FLUSH PRN (15:00)
[2018-03-16 15:20] VITALS: RESP 16; O2SAT 98
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
[2018-03-16 15:45] LABS: BASOPHIL # 0.1 TH/MM3 (0-0.2); BASOPHIL % 0.8 % (0.0-2.0); EOSINOPHIL # 0.4 TH/MM3 (0-0.4); EOSINOPHIL % 3.6 % (0.0-4.0); HEMATOCRIT 41.5 % (39.0-51.0); LYMPH % 15.5 % (9.0-44.0); LYMPHOCYTE # 1.6 TH/MM3 (1.0-4.8); MEAN CELL VOLUME 92.7 FL (80.0-100.0); MEAN CORPUSCULAR HEMOGLOBIN 31.2 PG (27.0-34.0); MEAN CORPUSCULAR HGB CONC 33.6 % (32.0-36.0); MEAN PLATELET VOLUME 8.2 FL (7.0-11.0); MONO % 3.8 % (0.0-8.0); MONOCYTE # 0.4 TH/MM3 (0-0.9); NEUT % 76.3 % (16.0-70.0); PLATELET COUNT 325 TH/MM3 (150-450); RED BLOOD COUNT 4.47 MIL/MM3 (4.50-5.90); RED CELL DISTRIBUTION WIDTH 13.9 % (11.6-17.2); WHITE BLOOD COUNT 10.6 TH/MM3 (4.0-11.0)
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
[2018-03-16 15:56] LABS: INTERNATIONAL NORMALIZED RATIO 0.9 RATIO; PROTHROMBIN TIME - PATIENT 9.4 SEC (9.8-11.6)
[2018-03-16 16:02] LABS: ALKALINE PHOSPHATASE 84 U/L (45-117); TOTAL BILIRUBIN ADULT 0.3 MG/DL (0.2-1.0); TOTAL PROTEIN 6.5 GM/DL (6.4-8.2)
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
[2018-03-16 16:12] LABS: ALBUMIN 3.6 GM/DL (3.4-5.0); ALT (GPT) 31 U/L (12-78); AST (GOT) 27 U/L (15-37); BICARBONATE 21.5 MEQ/L (21.0-32.0); BLOOD UREA NITROGEN 21 MG/DL (7-18); CHLORIDE 110 MEQ/L (98-107); CREATININE 0.71 MG/DL (0.60-1.30); GLOMERULAR FILTRATION RATE 111 ML/MIN (>89); GLUCOSE,RANDOM 67 MG/DL (74-106); SODIUM (NA) 142 MEQ/L (136-145)
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
[2018-03-16] MEDS ORDERED: LIDOCAINE 1%/EPINEPHrine 1:100,000 SOLN 50 ML VIAL INFIL ONE (16:45)
[2018-03-16] MEDS ORDERED: MORPHINE SULFATE 4 MG/ML INJ IV PUSH ONE (16:45)
[2018-03-16] MEDS ORDERED: LORazepam 2 MG/ML VIAL IV PUSH ONE (16:45)
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
[2018-03-16] MEDS ORDERED: oxyCODONE/ACETAMINOPHEN 10 MG/325 MG TAB PO ONE (17:15)
[2018-03-16] MEDS ORDERED: methylPREDNISolone SOD SUCC 125 MG/2 ML VIAL IV PUSH ONE (18:00)
[2018-03-16] MEDS ORDERED: SODIUM CHLORIDE 0.9% FLUSH 10 ML FLUSH IVF PRN (18:00)
[2018-03-16] MEDS ORDERED: PERC5TAB12 PO ×2 (18:30→18:31)
[2018-03-16] MEDS: RESP: ALBUTEROL 2.5 MG/IPRATROPIUM 0.5 MG NEB (SCH) INH ×2 (18:39→18:40)
[2018-03-16 21:10] VITALS: BP 124/65; PULSE 70; RESP 16; O2SAT 95
[2018-03-17] MEDS ORDERED: ALBUAER3 INH (07:05)
[2018-03-17] MEDS ORDERED: ADVA115A INH (07:05)
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
[2018-03-22] MEDS ORDERED: ADVA230A INH (15:27)
== END 2018-03-16 22:10 | disposition home or self-care (01) ==
LOC: NEDAMB 14:02 → NEPD 22:10
DX: S22.31XA Fracture of one rib, right side, initial encounter for closed fracture (principal); S01.01XA Laceration without foreign body of scalp, initial encounter; F17.210 Nicotine dependence, cigarettes, uncomplicated; J44.9 Chronic obstructive pulmonary disease, unspecified; F10.129 Alcohol abuse with intoxication, unspecified; Y90.7 Blood alcohol level of 200-239 mg/100 ml; Y09 Assault by unspecified means
CPT/HCPCS: 12001; 70450; 71045; 72125; 73030; 80053; 80307; 82140; 82550; 85025; 85610; 85730; 94640; 94664; 96361; 96374; 99285; J2930; J7030

== ENCOUNTER 2018-03-17 06:51 | Emergency (ER) | payer MEDICARE, OTHER ==
[~2018-03-17] VITALS: Ht 175.3 cm; Wt 60.0 kg
[~2018-03-17 06:51] MED LIST changes: +PERC5TAB12 PO
[2018-03-17 06:59] VITALS: BP 113/73; PULSE 94; RESP 18; TEMP 98; O2SAT 95
[2018-03-17] MEDS ORDERED: ADVA115A INH (07:05)
[2018-03-17] MEDS ORDERED: ALBUAER3 INH (07:05)
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
[2018-03-22] MEDS ORDERED: ADVA230A INH (15:27)
== END 2018-03-17 07:05 | disposition left against medical advice (07) ==
LOC: NEPD 06:51
DX: Z87.09 Personal history of other diseases of the respiratory system (principal)
CPT/HCPCS: 99281

== ENCOUNTER 2018-03-17 22:41 | Emergency (ER) | payer MEDICARE, OTHER ==
[~2018-03-17] VITALS: Ht 167.6 cm; Wt 65.0 kg
[2018-03-17 22:53] VITALS: BP 112/57; PULSE 92; RESP 20; TEMP 97.4; O2SAT 95
--- NOTE | 2018-03-17 23:03 | PD ---
HPI Chief Complaint: Medication Refill Request Time Seen by Provider: 23:01 Travel History International Travel<30 days: No Contact w/Intl Traveler<30days: No Traveled to known affect area: No History of Present Illness HPI This is a 67-year-old male who presents complaining of wheezing. Symptom onset unknown. He has a history of COPD and asthma by chart review. He reports that he has been prescribed medications by this hospital as well as by [facility] and he did not make it to the pharmacy in time to get them filled this evening. Specifically he reports that he was prescribed albuterol inhaler, Advair, prednisone and an unknown antibiotic. Symptoms are moderate, aggravated by inability to get the medications filled, no alleviating factors. The patient is verbally aggressive during examination. He has been seen here numerous times this month. PFSH Past Medical History Asthma: Yes COPD: Yes Diminished Hearing: No Respiratory: Yes Immunizations Current: Yes Tetanus Vaccination: Unknown Influenza Vaccination: No Past Surgical History Abdominal Surgery: Yes (HERNIA REPAIR) Other Surgery: Yes (hernia surgery 3 hrs) Social History Alcohol Use: Yes (8 beers occasionally) Tobacco Use: Yes (8 cigs per day.) Substance Use: No Allergies-Medications (Allergen,Severity, Reaction): Coded Allergies: No Known Allergies (Verified Allergy, Unknown, 03/17/18) Reported Meds & Prescriptions Reported Meds & Active Scripts Active Advair Hfa 12 GM Inh (Fluticasone-Salmeterol 12 GM Inh) 115-21 Mcg/Act Aer 2 Puff INH BID Proair Hfa 8.5 GM Inh (Albuterol Sulfate) 90 Mcg/Act Aer 2 Puff INH Q4HR PRN 108 mcg/actuation Percocet (Oxycodone-Acetaminophen) 5-325 mg Tab 1 Tab PO Q6H PRN Advair Hfa 12 GM Inh (Fluticasone-Salmeterol 12 GM Inh) 115-21 Mcg/Act Aer 2 Puff INH BID Proair Hfa 8.5 GM Inh (Albuterol Sulfate) 90 Mcg/Act Aer 2 Puff INH Q4-6H PRN 108 mcg/actuation Review of Systems Except as stated in HPI: all other systems reviewed are Neg Physical Exam Narrative GENERAL: Well-nourished male in no acute distress SKIN: Warm and dry. HEAD: Atraumatic. Normocephalic. EYES: Pupils equal and round. No scleral icterus. No injection or drainage. ENT: No nasal bleeding or discharge. Mucous membranes pink and moist. NECK: Trachea midline. No JVD. CARDIOVASCULAR: Regular rate and rhythm. No murmur appreciated. RESPIRATORY: No accessory muscle use. Mild wheezing bilaterally. GASTROINTESTINAL: Abdomen soft, non-tender, nondistended. Hepatic and splenic margins not palpable. MUSCULOSKELETAL: No obvious deformities. No clubbing. No cyanosis. No edema. NEUROLOGICAL: Awake and alert. No obvious cranial nerve deficits. Motor grossly within normal limits. Normal speech. Data Data Last Documented VS Vital Signs Date Time Temp Pulse Resp B/P (MAP) Pulse Ox O2 Delivery O2 Flow Rate FiO2 03/17/18 22:53 97.4 92 20 112/57 (75) 95 Orders Orders Albuterol-Ipratropium Neb (Duoneb Neb) (03/17/18 23:15) Ed Discharge Order (03/17/18 23:01) Prednisone (Deltasone) (03/17/18 23:15) [facility] Medical Decision Making Medical Screen Exam Complete: Yes Emergency Medical Condition: Yes Medical Record Reviewed: Yes Differential Diagnosis COPD, asthma, medication noncompliance Narrative Course The patient will be given a DuoNeb treatment and a dose of prednisone. He is stable for discharge, recommended getting his prescriptions filled in the morning. Diagnosis Primary Impression: COPD exacerbation Additional Instructions: As discussed, obtain your medication prescriptions in the morning at the nearest pharmacy. Med/Other Pt SpecificInfo: No Change to Meds Disposition: 01 DISCHARGE HOME Condition: Stable [address] Mar 17, 2018 23:03
[2018-03-17] MEDS ORDERED: predniSONE 20 MG TAB PO ONE (23:15)
[2018-03-17] MEDS ORDERED: RESP: ALBUTEROL 2.5 MG/IPRATROPIUM 0.5 MG NEB (SCH) INH ONE (23:15)
[2018-03-22] MEDS ORDERED: ADVA230A INH (15:27)
== END 2018-03-17 23:27 | disposition home or self-care (01) ==
LOC: NEPD 22:41
DX: J44.1 Chronic obstructive pulmonary disease with (acute) exacerbation (principal); Z72.0 Tobacco use
CPT/HCPCS: 94664; 99281; J7512